=== PATIENT | female | born 1990 | race Caucasian/White ===

== ENCOUNTER 2020-07-24 18:43 | Emergency (ER) | payer OTHER, SELFPAY ==
[2020-07-24 18:54] VITALS: BP 144/95; PULSE 91; RESP 16; TEMP 36.9; O2SAT 100
--- NOTE | 2020-07-24 19:20 | ED.DENTAL ---
HPI - Dental/Oral General Chief complaint: Dental/Oral Stated complaint: hole under tongue Time Seen by Provider: 07/24/20 19:20 Source: patient and RN notes reviewed Mode of arrival: ambulatory Limitations: no limitations History of Present Illness HPI Narrative: 29 year old female presents to express care with complaints of hole under her left tongue region. Patient states tht she was at the dentist this evening when a dental tool slipped and she ended up with a hole under her tongue along left lingual frenulum about the size of a pencil eraser. Patient received oral antibiotic and also steroids on discharge from dentist but is concerned about food getting caught in area with infection. Patient states that she was told by dental activity assistant what had happened. Patient has no bleeding or drainage from area. Onset (ago): hour(s) (within past 1-2 hours ago) Duration: constant Severity: moderate Severity scale (1-10): 8 Relieving factors: nothing Exacerbating factors: chewing Context: trauma (mechanism) (dental tool slipped while getting root canal) Associated symptoms: tongue swelling and other (pain to underside left region of tongue) Treatment prior to arrival: none Related Data Home Medications Medication Instructions Recorded Confirmed escitalopram oxalate 20 mg PO DAILY 07/24/20 07/24/20 levonorgestrel-ethinyl estrad 1 tablet PO DAILY 07/24/20 07/24/20 [Vienva] rosuvastatin 20 mg PO DAILY 07/24/20 07/24/20 Allergies Allergy/AdvReac Type Severity Reaction Status Date / Time No Known Drug Allergies Allergy Unknown Other Verified 07/24/20 19:01 Review of Systems Review of Systems: Narrative: CONSTITUTIONAL: Denies fever, chills, or sweats. EYES: Denies visual changes, redness, or discharge. ENT: Denies rhinorrhea, congestion, sore throat, or otalgia, discomfort and hole to tissue under tongue on left side lingual frenulum area CARDIOVASCULAR: Denies chest pain, palpitations, or edema. RESPIRATORY: Denies cough or dyspnea. GASTROINTESTINAL: Denies abdominal pain, nausea, vomiting, or diarrhea. GENITOURINARY: Denies dysuria or hematuria. SKIN: Denies rash or itching. MUSCULOSKELETAL: Denies back pain, joint pain, or myalgia. NEUROLOGIC: Denies headache, numbness, or weakness. PSYCHIATRIC: history of anxiety or depression. All systems reviewed & are unremarkable except as noted in HPI and below PMFSH Past Medical History Medical History (Updated 07/24/20 @ 19:53 by Gwendolyn Hernandez NP) Anxiety and depression Elevated serum cholesterol Surgical History Surgical History (Updated 07/24/20 @ 19:53 by Gwendolyn Hernandez NP) History of tubal ligation Hx of cholecystectomy Family History Family History Other Asthma Hypertension Social History Social History Smoking status: Never smoker Alcohol intake: never Comments At time of signature, agree with nursing past medical, surgical, social and family history. There is no relevant family history pertinent to the presenting complaint Exam Narrative: Exam Narrative: GENERAL: Well-appearing, well-nourished, and in no acute distress. HEAD: Normocephalic, atraumatic. EYES: PERRLA and EOMI. ENT: Nares clear, no rhinorrhea or epistaxis. Mucous membranes moist.TM's normal with good light reflex,throat pink with no swelling, hole under tongue on lingual frenulum region size of pencil eraser. NECK: Supple.no lymphadenopathy CHEST: Clear to auscultation. No respiratory distress.SAO2 100% on room air. HEART: Regular rate and rhythm. No murmur heard. Normal peripheral pulses. ABDOMEN: Soft, nontender, nondistended, normal active bowel sounds. EXTREMITIES: Normal range of motion. No edema. SKIN: Warm, dry, no rash. NEURO: No focal deficits. Alert and oriented x3. Course Vital Signs Vital signs: Vital Signs Temperature 36.9 C 07/24/20 18:54 Pulse Rat
== END 2020-07-24 19:40 | disposition home or self-care (01) ==
PROVIDERS: Emergency Provider Registered Nurse; PCP Internal Medicine
DX: K14.9 Disease of tongue, unspecified (principal); S09.93XA Unspecified injury of face, initial encounter; X58.XXXA Exposure to other specified factors, initial encounter; F41.9 Anxiety disorder, unspecified; F32.9 Major depressive disorder, single episode, unspecified; E78.00 Pure hypercholesterolemia, unspecified
CPT/HCPCS: 99213; G0463

== ENCOUNTER 2021-05-06 15:39 | Emergency (ER) | payer OTHER, SELFPAY ==
[2021-05-06 15:46] VITALS: BP 136/84; PULSE 100; RESP 20; TEMP 36.6; O2SAT 99
--- NOTE | 2021-05-06 16:23 | ED.FALL ---
HPI - Fall General Chief Complaint: Fall Stated Complaint: fall Time Seen by Provider: 05/06/21 16:15 Source: patient and RN notes reviewed Mode of arrival: ambulatory Limitations: no limitations History of Present Illness HPI Narrative: Patient presents today after falling out of her shower 2 days ago and landing on her right side. Denies any head injury or loss of consciousness. She reports of body aches and headache. Denies numbness or tingling in the extremities. She currently rates her pain 8/10 and has been taking Tylenol without relief. She called her PCPs office, told them she had body aches related to a fall, and they told her she had Covid symptoms and needed a COVID-19 test. complaint: fall Related Data Home Medications Medication Instructions Recorded Confirmed escitalopram oxalate 20 mg PO DAILY 07/24/20 05/06/21 rosuvastatin 20 mg PO DAILY 07/24/20 05/06/21 levonorgestrel-ethinyl estrad 1 tablet PO DAILY 05/06/21 05/06/21 [Thaddeus (28)] Allergies Allergy/AdvReac Type Severity Reaction Status Date / Time No Known Drug Allergies Allergy Unknown Other Verified 05/06/21 16:09 Review of Systems Review of Systems: CONSTITUTIONAL: Denies fever, chills, or sweats.+ Body aches EYES: Denies visual changes, redness, or discharge. ENT: Denies rhinorrhea, congestion, sore throat, or otalgia. CARDIOVASCULAR: Denies chest pain, palpitations, or edema. RESPIRATORY: Denies cough or dyspnea. GASTROINTESTINAL: Denies abdominal pain, nausea, vomiting, or diarrhea. GENITOURINARY: Denies dysuria or hematuria. SKIN: Denies rash, itching, or wounds. MUSCULOSKELETAL: Denies back pain, joint pain, or myalgia. NEUROLOGIC: Denies headache, numbness, tingling, or weakness. PSYCH: Denies depression or anxiety. [facility] Past Medical History Medical History Anxiety and depression Elevated serum cholesterol Surgical History Surgical History History of tubal ligation Hx of cholecystectomy Family History Family History Other Asthma Hypertension Social History Social History Smoking status: Never smoker Alcohol intake: never Comments At time of signature, I have reviewed and agree with nursing past medical, surgical, social and family history unless otherwise noted. Please see nursing chart for further information. There is no relevant family history pertinent to the presenting complaint Exam Narrative: GENERAL: Well-appearing, well-nourished, and in no acute distress. HEAD: Normocephalic, atraumatic. EYES: EOMI. No redness or drainage. Conjunctivae normal. ENT: Mucous membranes pink and moist. NECK: Normal AROM. Supple. No lymphadenopathy. Neck is nontender. CHEST: No respiratory distress. Clear to auscultation. HEART: Regular rate and rhythm. No murmur appreciated. Normal peripheral pulses. ABDOMEN: Soft, nontender, nondistended, normal active bowel sounds. MUSCULOSKELETAL: No bony tenderness of the spine or paraspinal muscle tenderness. EXTREMITIES: Normal range of motion. No edema. SKIN: Warm, dry, no rash. Capillary refill normal. Normal skin turgor. NEURO: No focal deficits. Alert and oriented x3. Gait steady. PSYCH: Normal affect. No signs of depression or anxiety. Course Vital Signs Vital signs: Vital Signs Temperature 97.9 F 05/06/21 15:46 Pulse Rate 100 05/06/21 15:46 Respiratory Rate 20 05/06/21 15:46 Blood Pressure 136/84 05/06/21 15:46 Pulse Oximetry 99 05/06/21 15:46 Temperature 97.9 F 05/06/21 15:46 Pulse Rate 100 05/06/21 15:46 Respiratory Rate 20 05/06/21 15:46 Blood Pressure 136/84 05/06/21 15:46 Pulse Oximetry 99 05/06/21 15:46 Reviewed. Pt has been instructed to follow up with her PCP regardin
== END 2021-05-06 16:30 | disposition home or self-care (01) ==
PROVIDERS: Emergency Provider Nurse Practitioner; PCP Internal Medicine
DX: R52 Pain, unspecified (principal); W18.2XXA Fall in (into) shower or empty bathtub, initial encounter
CPT/HCPCS: 99213; G0463

== ENCOUNTER 2021-08-06 15:15 | Emergency (ER) | payer OTHER, SELFPAY ==
[2021-08-06 16:38] VITALS: BP 125/85; PULSE 86; RESP 20; TEMP 36.9; O2SAT 100
--- NOTE | 2021-08-06 18:18 | ED.EAR ---
HPI - Ear Problem General Chief complaint: Ear Stated complaint: Sinus Pain/Ear Pain Time Seen by Provider: 08/06/21 18:00 Source: patient, RN notes reviewed and old records reviewed Mode of arrival: ambulatory Limitations: no limitations History of Present Illness HPI Narrative: 30 year old female who presents to [facility] care with complaints of 2 day history of acute sinus pressure with drainage and left ear pain along with some sore throat. Patient reports that she has had low grade temperature denies any chills or sweats or any body aches. Patient states that she has not been COVID or flu vaccinated. Patient reports that she has been taking Sudafed and Ibuprofen for her symptoms. Patient reports aching pain to her left ear rates her pain as 6/10. Patient does have history of asthma but denies any acute cough, dyspnea or wheezing. MD Complaint: ear pain and other (sinus congestion, sore throat and acute sinus pressure) Location: left ear Related Data Home Medications Medication Instructions Recorded Confirmed escitalopram oxalate 20 mg PO DAILY 07/24/20 08/06/21 rosuvastatin 20 mg PO DAILY 07/24/20 08/06/21 levonorgestrel-ethinyl estrad 1 tablet PO DAILY 05/06/21 08/06/21 [Thaddeus (28)] Allergies Allergy/AdvReac Type Severity Reaction Status Date / Time No Known Drug Allergies Allergy Unknown Other Verified 05/06/21 16:09 Review of Systems Review of Systems: CONSTITUTIONAL: Low grade fever,no chills, or sweats. EYES: Denies visual changes, redness, or discharge. ENT: Positive for copious rhinorrhea, congestion, sore throat,left otalgia. CARDIOVASCULAR: Denies chest pain, palpitations, or edema. RESPIRATORY: Denies acute cough or dyspnea. GASTROINTESTINAL: Denies abdominal pain, nausea, vomiting, or diarrhea. GENITOURINARY: Denies dysuria or hematuria. SKIN: Denies rash or itching. MUSCULOSKELETAL: Denies back pain, joint pain, or myalgia. NEUROLOGIC: Denies headache, numbness, or weakness.sinus pressure to face PSYCHIATRIC: Positive for history of anxiety or depression. All systems reviewed & are unremarkable except as noted in HPI and below PMFSH Past Medical History Medical History (Updated 08/08/21 @ 12:13 by Gwendolyn Hernandez NP) Anxiety and depression Asthma Elevated serum cholesterol Surgical History Surgical History (Updated 08/08/21 @ 12:14 by Gwendolyn Hernandez NP) History of tubal ligation Hx of cholecystectomy Status post tendon repair right hand Family History Family History (Updated 08/08/21 @ 12:03 by Gwendolyn Hernandez NP) Grandparent Cerebrovascular accident Cancer Mother Hypertension Father Asthma Sibling Asthma Other Heart disease Social History Social History (Updated 08/08/21 @ 12:03 by Gwendolyn Hernandez NP) Smoking status: Never smoker Alcohol intake: never Substance use: never Living arrangements: with family Gender identity (if verbalized by the patient): Female Comments At time of signature, agree with nursing past medical, surgical, social and family history. There is no relevant family history pertinent to the presenting complaint Exam Narrative: GENERAL:Ill-appearing, well-nourished, and in no acute distress. HEAD: Normocephalic, atraumatic. EYES: PERRLA and EOMI. ENT: Nares red with swollen turbinates with clear to light yellow rhinorrhea or epistaxis. Mucous membranes moist.Left TM bulging with mild redness, right TM normal with dull light reflex, throat red with exudates no lesions no acute tonsil enlargement post nasal drainage present NECK: Supple. lymphadenopathy CHEST: Clear to auscultation. No respiratory distress.no acute cough noted, SAO2 100% on room air HEART: Regular rate and rhythm. No murmur heard. Normal peripheral pulses. ABDOMEN: Soft, nontender, nondistended, normal active bowel sounds. EXTREMITIES: Normal range of motion. No edema. SKIN: Warm, dry, no rash. NEURO: No focal deficits. Alert and oriented x3. Course Vi
== END 2021-08-06 18:34 | disposition home or self-care (01) ==
PROVIDERS: Emergency Provider Registered Nurse; PCP Internal Medicine
DX: J01.90 Acute sinusitis, unspecified (principal); J45.909 Unspecified asthma, uncomplicated; F41.9 Anxiety disorder, unspecified; F32.A Depression, unspecified
CPT/HCPCS: 99213; G0463

== ENCOUNTER 2022-09-02 17:19 | Emergency (ER) | payer OTHER, SELFPAY ==
[2022-09-02 17:26] VITALS: BP 131/82; PULSE 89; RESP 16; TEMP 36.6; O2SAT 99
--- NOTE | 2022-09-02 17:46 | ED.URI ---
HPI - URI/Sore Throat General Chief Complaint: Upper Respiratory Infection Stated Complaint: Ears/ congestion Time Seen by Provider: 09/02/22 17:49 Source: patient, RN notes reviewed and old records reviewed Mode of arrival: ambulatory Limitations: no limitations History of Present Illness HPI Narrative: 31-year-old female presents to the [facility] with complaints bilateral ear discomfort for couple of days, woke up this morning with a runny nose. Denies fevers. Has taken Benadryl but she states she can not sleep all the time Related Data Home Medications Medication Instructions Recorded Confirmed escitalopram oxalate 20 mg tablet 20 mg PO DAILY 07/24/20 08/06/21 rosuvastatin 20 mg tablet 20 mg PO DAILY 07/24/20 08/06/21 levonorgestrel 0.15 mg-ethinyl 1 tablet PO DAILY 05/06/21 08/06/21 estradiol 0.03 mg tablet (Thaddeus (28)) Allergies Allergy/AdvReac Type Severity Reaction Status Date / Time No Known Drug Allergies Allergy Unknown Other Verified 05/06/21 16:09 Review of Systems Review of Systems: All systems reviewed & are unremarkable except as noted in HPI and below Constitutional: Constitutional: Reports no additional constitutional complaints Eyes: Eyes: Reports no additional eye complaints ENT: Reports as per HPI Cardiovascular: Cardiovascular: Reports no additional cardiovascular complaints, Denies chest pain and Denies dyspnea Respiratory: Respiratory: Reports no additional respiratory complaints, Denies chest congestion, Denies cough and Denies dyspnea Gastrointestinal: Gastrointestinal: Reports no additional gastrointestinal complaints, Denies abdominal pain, Denies nausea and Denies vomiting Musculoskeletal: Musculoskeletal: Reports no additional musculoskeletal complaints Integumentary/Breasts: Skin/Breast: Reports system reviewed and no additional complaints, except as docu Neurologic: Reports system reviewed and no additional complaints, except as documented Psychiatric: Psychiatric: Reports no additional psychiatric complaints Allergic/Immunologic: Allergic/Immunologic: Reports no additional allergic/immunologic complaints [facility] Past Medical History Medical History (Updated 09/02/22 @ 17:58 by Stacia Mendoza APRN) Anxiety and depression Asthma Elevated serum cholesterol Surgical History Surgical History History of tubal ligation Hx of cholecystectomy Status post tendon repair right hand Family History Family History Grandparent Cerebrovascular accident Cancer Mother Hypertension Father Asthma Sibling Asthma Other Heart disease Social History Social History Smoking status: Never smoker Alcohol intake: never Substance use: never Living arrangements: with family Gender identity (if verbalized by the patient): Female Comments At the time of my signature, I reviewed and agree with the nursing past medical, surgical, social, and family history. There is no relevant family history pertinent to the patient complaint. Exam Const: General: cooperative, healthy appearing, comfortable, no acute distress, well developed, alert and well nourished Nutritional Appearance: well nourished Orientation/consciousness: patient oriented x3 Limitations: no limitations HENMT: Head: normal to inspection Ears: hearing grossly normal bilaterally, external ears normal and Abnormal EAC present cerumen impaction bilateral Face/Nose/Sinus: Normal external nose present, Normal nares present, Normal nasal mucous membranes and turbinates present, no nasal discharge noted and normal facial exam Face and sinus: normal facial exam Mouth: Yes Normal oral and palatal mucosa present, Yes lip normal and Yes moist mucous membranes Throat: posterior oropharynx normal and uvula midline Eyes: General: appearance normal
== END 2022-09-02 18:05 | disposition home or self-care (01) ==
PROVIDERS: Emergency Provider Nurse Practitioner
DX: H61.23 Impacted cerumen, bilateral (principal); F41.9 Anxiety disorder, unspecified; F32.A Depression, unspecified; J45.909 Unspecified asthma, uncomplicated; E78.00 Pure hypercholesterolemia, unspecified
CPT/HCPCS: 99213; G0463

== ENCOUNTER 2023-07-06 14:12 | Emergency (ER) | payer OTHER, SELFPAY ==
[2023-07-06 14:18] VITALS: BP 141/81; PULSE 102; RESP 20; TEMP 36.6; O2SAT 98
--- NOTE | 2023-07-06 14:35 | ED.URI ---
HPI - URI/Sore Throat General Chief Complaint: Upper Respiratory Infection Stated Complaint: Sore Throat/Headache Time Seen by Provider: 07/06/23 14:30 Source: patient and RN notes reviewed Mode of arrival: ambulatory Limitations: no limitations History of Present Illness HPI Narrative: 32-year-old female presents concern for cough for 1 month. Reports over the last 2-3 days she has began to have a sore throat. She reports mild stuffy nose and runny nose. Reports fatigue. MD elicited complaint: cough and sore throat Related Data Allergies Allergy/AdvReac Type Severity Reaction Status Date / Time No Known Drug Allergies Allergy Unknown Other Verified 01/22/23 13:40 Review of Systems Review of Systems: CONSTITUTIONAL: Reports malaise, fatigue. Denies chills, sweats, or fever. EYES: Denies visual changes, redness, or discharge. ENT: Reports rhinorrhea, congestion, sore throat. Denies sinus pain, otalgia CARDIOVASCULAR: Denies chest pain, palpitations, or edema. RESPIRATORY: Reports cough. Denies dyspnea. GASTROINTESTINAL: Denies abdominal pain, nausea, vomiting, diarrhea SKIN: Denies rash or itching. MUSCULOSKELETAL: Denies myalgia. NEUROLOGIC: Denies headache. All systems reviewed & are unremarkable except as noted in HPI and below PMFSH Past Medical History Medical History (Updated 07/06/23 @ 14:39 by Stacia Baez NP) Anxiety and depression Asthma Elevated serum cholesterol Screen for STD (sexually transmitted disease) Surgical History Surgical History History of tubal ligation Hx of cholecystectomy Status post tendon repair right hand Family History Family History Grandparent Cerebrovascular accident Cancer Mother Hypertension Father Asthma Sibling Asthma Other Heart disease Social History Social History (Updated 01/22/23 @ 13:42 by Shayla Klein CMA) Smoking status: Never smoker Alcohol intake: never Substance use: current Substance use type: marijuana Lack of Transportation: No Lack of Food: Never True Current Housing: I Have Housing Concerned About Future Housing: No Difficulty Paying Gas/Electric Bills: No Difficulty Paying for Meds: No Currently Unemployed: No Education: High School Diploma/GED Difficulty w/ Childcare or Family Care: No Living arrangements: with family Gender identity (if verbalized by the patient): Female Comments At time of signature, agree with nursing past medical, surgical, social and family history. There is no relevant family history pertinent to the presenting complaint Exam Narrative: GENERAL: Well-appearing, well-nourished, and in no acute distress. HEAD: Normocephalic EYES: PERRLA, conjunctivae clear ENT: Nares clear, turbinates edematous and erythematous, clear discharge. Mucous membranes moist. TM pearly adams with sharp light reflex bilaterally; no tragal tenderness. Oropharynx not erythematous without lesions. Tonsils not enlarged and without exudate, no drooling, no hoarseness, no trismus, uvula midline. NECK: Supple. No lymphadenopathy CHEST: Clear to auscultation, breath sounds equal. No wheezing, rhonchi, rales, or stridor. No respiratory distress, speaks in full sentences. HEART: Regular rate and rhythm. No murmur heard. SKIN: Warm, dry, no rash. NEURO: Alert and oriented x3. PSYCH: Normal mood and affect Course Course Emergency Course: Patient is aware of diagnosis, understands and agrees to treatment plan. Anticipatory guidance given. Patient agrees to follow-up as directed and is aware of reasons to seek care at the emergency department. Portions of this record may have been created with voice recognition software Level of Care: Express Care Visit Vital Signs Vital signs: Vital Signs Temperature 97.9 F 07/06/23 14:18 Pulse Rate 102 H 07/06/23 14:18 Respiratory Rate 20
== END 2023-07-06 14:45 | disposition home or self-care (01) ==
PROVIDERS: Emergency Provider Nurse Practitioner
DX: J06.9 Acute upper respiratory infection, unspecified (principal)
CPT/HCPCS: 87081; 87880; 99213; G0463

== ENCOUNTER 2023-07-10 11:01 | Outpatient (CLI) | payer OTHER, SELFPAY ==
[2023-07-10 13:58] LABS: Chlamydia trachomatis DETECTED (NOT DETECTE); Neisseria gonorrhoeae PCR NOT DETECTED (NOT DETECTE)
== END 2023-07-10 11:02 | disposition home or self-care (01) ==
PROVIDERS: Visit Provider Obstetrics & Gynecology
DX: Z11.3 Encounter for screening for infections with a predominantly sexual mode of transmission (principal)
CPT/HCPCS: 87491; 87591

== ENCOUNTER 2023-07-28 15:34 | Emergency (ER) | payer OTHER, SELFPAY ==
[2023-07-28 15:57] VITALS: BP 122/79; PULSE 80; RESP 16; TEMP 36.8; O2SAT 99
--- NOTE | 2023-07-28 17:03 | ED.GENADULT ---
HPI - General Adult General Chief complaint: [employer] Stated complaint: STD testing Source: patient Mode of arrival: ambulatory Limitations: no limitations History of Present Illness HPI narrative: Patient presents requesting STI testing. She indicates a male sex partner told her about 3-4 weeks ago that he tested positive for chlamydia, for which he was treated. After she found out, pt contacted her primary care provider who obtained a urine sample from her. She was not experiencing any symptoms at that time. Her chlamydia test was positive. She was treated with doxycycline for one week. She returned back to her primary care provider for evaluation of white/clear milky discharge. No diagnostic testing was performed at that time. She was given another round of doxycycline x 1 week. She return for a test for cure and was negative for chlamydia after her 2nd course of doxycycline. She had no sexual contact with her male partner while she was on antibiotics but did have receptive vaginal intercourse with following antibiotics. She now reports some pelvic cramping that started yesterday. She denies any vaginal discharge. No fever, chills, nausea, vomiting, urinary symptoms. She never uses condoms during sexual intercourse. She has a history of a tubal ligation. She has an upcoming appointment with her OBGYN in the middle of August. She has a history of regular menstruation, usually occurring between the 22nd and 25th for a month so please her current both cramping may be related to menstruation, although she is not bleeding Related Data Allergies Allergy/AdvReac Type Severity Reaction Status Date / Time No Known Drug Allergies Allergy Unknown Other Verified 01/22/23 13:40 Review of Systems Review of Systems: CONSTITUTIONAL: Denies fever, chills, or sweats. EYES: Denies visual changes, redness, or discharge. ENT: Denies rhinorrhea, congestion, sore throat, or otalgia. CARDIOVASCULAR: Denies chest pain, palpitations, or edema. RESPIRATORY: Denies cough or dyspnea. GASTROINTESTINAL: Denies abdominal pain, nausea, vomiting, or diarrhea. GENITOURINARY: Reports pelvic cramping. Denies dysuria or hematuria. SKIN: Denies rash or itching. MUSCULOSKELETAL: Denies back pain, joint pain, or myalgia. NEUROLOGIC: Denies headache, numbness, dizziness, or weakness. PSYCHIATRIC: Denies anxiety or depression. [facility] Past Medical History Medical History Anxiety and depression Asthma Elevated serum cholesterol Screen for STD (sexually transmitted disease) Surgical History Surgical History History of tubal ligation Hx of cholecystectomy Status post tendon repair right hand Family History Family History Grandparent Cerebrovascular accident Cancer Mother Hypertension Father Asthma Sibling Asthma Other Heart disease Social History Social History Smoking status: Never smoker Alcohol intake: never Substance use: current Substance use type: marijuana Lack of Transportation: No Lack of Food: Never True Current Housing: I Have Housing Concerned About Future Housing: No Difficulty Paying Gas/Electric Bills: No Difficulty Paying for Meds: No Currently Unemployed: No Education: High School Diploma/GED Difficulty w/ Childcare or Family Care: No Living arrangements: with family Gender identity (if verbalized by the patient): Female Exam Narrative: GENERAL: Well-appearing, well-nourished, and in no acute distress. HEAD: Normocephalic, atraumatic. EYES: PERRLA and EOMI. ENT: Nares clear, no rhinorrhea or epistaxis. Mucous membranes moist. Oropharynx without tonsillar hypertrophy exudate or other lesions. Bilateral TMs pearly adams nonbulging NECK: Supple. N
[2023-07-28 21:08] LABS: Trichomonas Vag PCR NOT DETECTED (NOT DETECTE)
[2023-07-28 21:29] LABS: Chlamydia trachomatis NOT DETECTED (NOT DETECTE); Neisseria gonorrhoeae PCR NOT DETECTED (NOT DETECTE)
== END 2023-07-28 17:25 | disposition home or self-care (01) ==
PROVIDERS: Emergency Provider Nurse Practitioner
DX: N30.00 Acute cystitis without hematuria (principal); Z11.3 Encounter for screening for infections with a predominantly sexual mode of transmission
CPT/HCPCS: 81003; 87077; 87086; 87088; 87491; 87591; 87661; 99214; G0463

== ENCOUNTER 2023-08-26 08:31 | Emergency (ER) | payer OTHER, SELFPAY ==
[2023-08-26 08:38] VITALS: BP 112/87; PULSE 120; RESP 19; TEMP 36.9; O2SAT 100
[2023-08-26 08:53] VITALS: BP 134/91; PULSE 101; RESP 16; O2SAT 99
--- NOTE | 2023-08-26 09:09 | ED.SKABFB ---
HPI - Skin/Abscess/Foreign Bdy General Chief complaint: Skin/Abscess/Foreign Body Stated complaint: knot on abdomen Time Seen by Provider: 08/26/23 08:57 Source: patient Mode of arrival: ambulatory Limitations: no limitations History of Present Illness HPI narrative: Arik is a 32-year-old female patient presenting to the ER today for a abscess to the left lower abdomen. She reports she was seen at [facility] in [place], [place] on Thursday and was started on Bactrim. She reports that the pain and redness is getting worse. The area has now come up to a head as well. Rates pain 9/10 currently. Has had body aches and chills but no known fever. Related Data Allergies Allergy/AdvReac Type Severity Reaction Status Date / Time No Known Drug Allergies Allergy Unknown Other Verified 08/26/23 08:41 Review of Systems Review of Systems: Pertinent positives per HPI. Patient denies any fever, chills, rash, headache, visual changes, dizziness, cough, runny nose, sore throat, shortness of breath, chest pain, palpitations, nausea, vomiting, diarrhea, constipation, abdominal pain, or any urinary issues. [facility] Past Medical History Medical History Anxiety and depression Asthma Elevated serum cholesterol Screen for STD (sexually transmitted disease) Surgical History Surgical History History of tubal ligation Hx of cholecystectomy Status post tendon repair right hand Family History Family History Grandparent Cerebrovascular accident Cancer Mother Hypertension Father Asthma Sibling Asthma Other Heart disease Social History Social History Smoking status: Never smoker Alcohol intake: never Substance use: current Substance use type: marijuana Lack of Transportation: No Lack of Food: Never True Current Housing: I Have Housing Concerned About Future Housing: No Difficulty Paying Gas/Electric Bills: No Difficulty Paying for Meds: No Currently Unemployed: No Education: High School Diploma/GED Difficulty w/ Childcare or Family Care: No Living arrangements: with family Gender identity (if verbalized by the patient): Female Comments At the time of my signature, I reviewed and agree with the nursing past medical, surgical, social, and family history. There is no relevant family history pertinent to the patient complaint. Exam Narrative: General: Well-developed, well nourished, in no apparent distress Head: Normocephalic, atraumatic. Cardio: Regular rate and rhythm, s1 and s2 normal, no murmur appreciated. Resp: Clear to auscultation bilaterally, no rhonchi, rales, wheezing or rubs. Integumentary: [place], warm, and dry, 2 1/2 x 4 cm abscess with induration to the left lower abdomen wall, mild fluctuance noted. Course Course Emergency Course: Portions of this record may have been created with voice recognition software. Vital Signs Vital signs: Vital Signs Temperature 36.9 C 08/26/23 08:38 Pulse Rate 120 H 08/26/23 08:38 Respiratory Rate 19 08/26/23 08:38 Blood Pressure 112/87 08/26/23 08:38 Pulse Oximetry 100 08/26/23 08:38 Oxygen Delivery Room Air 08/26/23 08:38 Temperature 36.9 C 08/26/23 08:38 Pulse Rate 75 08/26/23 10:23 Respiratory Rate 17 08/26/23 10:23 Blood Pressure 138/88 08/26/23 10:23 Pulse Oximetry 99 08/26/23 10:23 Oxygen Delivery Room Air 08/26/23 08:38 Vital signs reviewed Procedures Abscess I/D abdomen: Date of Incision: 08/26/23 Side (if applicable): left (lower) Local Anesthetic: lidocaine 1% and with epi Amount of anesthesia used (mL): 2 Technique: incised with #11 blade Amount of fluid expressed (mL): 5 Irrigation: No
[2023-08-26 09:32] LABS: Basophils Absolute Auto 0.1 K/mm3 (0.0-0.1); Basophils Percent Auto 0.6 % (0.2-1.2); Eosinophils Absolute Auto 0.2 K/mm3 (0-0.3); Hematocrit 42.4 % (37.0-47.0); Hemoglobin 14.2 g/dL (12.0-15.0); Immature Granulocyte Absolute 0.03 K/mm3 (0.00-0.031); Immature Granulocyte Percent A 0.3 % (0-0.5); Lymphocytes Percent Auto 17.6 % (18.3-44.2); Mean Corpuscular HGB Conc 33.5 g/dl (32-36); Mean Corpuscular Volume 86.7 fl (80-100); Monocytes Absolute Auto 0.6 K/mm3 (0.1-0.6); Monocytes Percent Auto 5.7 % (2.6-8.5); Neutrophils Absolute Auto 7.6 K/mm3 (1.3-6.7); Neutrophils Percent Auto 73.8 % (45.5-73.1); Platelet Count Result 230 k/mm3 (150-375); Red Blood Count 4.89 M/mm3 (4.2-5.4); Red Cell Distribution Width 11.9 % (11.5-14.5); White Blood Count 10.2 K/mm3 (4.5-10.0)
[2023-08-26 09:37] VITALS: BP 130/91; PULSE 101; RESP 23; O2SAT 100
[2023-08-26 09:41] LABS: Alanine Aminotransferase 29 U/L (6-35); Albumin Level 4.4 g/dL (3.5-5.1); Alkaline Phosphatase 45 U/L (38-126); Anion Gap 11 mmol/L (8-16); Aspartate Amino Transferase 27 U/L (14-36); Bilirubin,Total 0.6 mg/dL (0.2-1.3); Blood Urea Nitrogen 4 mg/dL (7-17); Calcium 8.9 mg/dL (8.4-10.2); Carbon Dioxide 23 mmol/L (22-30); Chloride 101 mmol/L (98-107); Estimated CRCL calculation 99 ml/min; Estimated Glomerular Filt Rate > 60; Glucose 155 mg/dL (65-110); Lactic Acid Reflex 1.6 mmol/L (0.7-2.0); Potassium 3.5 mmol/L (3.4-5.0); Sodium 135 mmol/L (137-145)
[2023-08-26 10:23] VITALS: BP 138/88; PULSE 75; RESP 17; O2SAT 99
[2023-08-26] MEDS: CLINDAMYCIN 600 MG/D5W 50 ML 600 MG/50 ML PIGGYBACK 100 MG IVPB (10:23)
== END 2023-08-26 10:30 | disposition home or self-care (01) ==
PROVIDERS: Emergency Provider Nurse Practitioner Family
DX: L02.211 Cutaneous abscess of abdominal wall (principal); F41.9 Anxiety disorder, unspecified; J45.909 Unspecified asthma, uncomplicated
CPT/HCPCS: 10061; 36415; 80053; 81025; 83605; 85025; 87040; 87070; 87147; 87181; 87186; 87205; 96365; 99284

== ENCOUNTER 2023-08-27 14:47 | Emergency (ER) | payer OTHER, SELFPAY ==
[2023-08-27 14:56] VITALS: BP 117/79; PULSE 103; RESP 16; TEMP 36.6; O2SAT 100
[2023-08-27] MEDS: KETOROLAC 30 MG/ML VIAL (*BKC) IM (17:49)
[2023-08-27] MEDS: HYDROcodone/acetaminophen (*CRX) 5-325 MG TABLET 1 TAB PO (17:49)
--- NOTE | 2023-08-27 18:45 | ED.GENADULT ---
HPI - General Adult General Chief complaint: Skin/Abscess/Foreign Body Stated complaint: abscess Time Seen by Provider: 08/27/23 16:03 History of Present Illness HPI narrative: Lukas Stevens is a 32 y/o female who presents [facility] reports of being here yesterday for an abscess to her right left lower abdomen, it was incised / drained / packing placed and started on clindamycin. She returns today because she feels added pressure in the abscess and her doctor told to get it rechecked. Related Data Allergies Allergy/AdvReac Type Severity Reaction Status Date / Time No Known Drug Allergies Allergy Unknown Other Verified 08/27/23 15:33 Review of Systems Review of Systems: CONSTITUTIONAL: Denies fever, chills, or sweats. EYES: Denies visual changes, redness, or discharge. ENT: Denies rhinorrhea, congestion, sore throat, or otalgia. CARDIOVASCULAR: Denies chest pain, palpitations, or edema. RESPIRATORY: Denies cough or dyspnea. GASTROINTESTINAL: Denies abdominal pain, nausea, vomiting, or diarrhea. GENITOURINARY: Denies dysuria or hematuria. SKIN: Denies rash or itching. reports of abscess to the left lower abdomen that feels more pressure/pain today MUSCULOSKELETAL: Denies back pain, joint pain, or myalgia. NEUROLOGIC: Denies headache, numbness, dizziness, or weakness. PSYCHIATRIC: Denies anxiety or depression. [facility] Past Medical History Medical History Anxiety and depression Asthma Elevated serum cholesterol Screen for STD (sexually transmitted disease) Surgical History Surgical History History of tubal ligation Hx of cholecystectomy Status post tendon repair right hand Family History Family History Grandparent Cerebrovascular accident Cancer Mother Hypertension Father Asthma Sibling Asthma Other Heart disease Social History Social History Smoking status: Never smoker Alcohol intake: never Substance use: current Substance use type: marijuana Lack of Transportation: No Lack of Food: Never True Current Housing: I Have Housing Concerned About Future Housing: No Difficulty Paying Gas/Electric Bills: No Difficulty Paying for Meds: No Currently Unemployed: No Education: High School Diploma/GED Difficulty w/ Childcare or Family Care: No Living arrangements: with family Gender identity (if verbalized by the patient): Female Exam Narrative: GENERAL: Well-appearing, well-nourished, and in no acute distress. HEAD: Normocephalic, atraumatic. EYES: PERRLA and EOMI. ENT: Nares clear, no rhinorrhea or epistaxis. Mucous membranes moist. Oropharynx without tonsillar hypertrophy exudate or other lesions. NECK: Supple. No adenopathy or masses. No carotid bruits or JVD CHEST: Clear to auscultation. No respiratory distress. No wheezes rales or rhonchi HEART: Regular rate and rhythm. No murmur heard. Normal peripheral pulses. ABDOMEN: Soft, nontender, nondistended, normal active bowel sounds. EXTREMITIES: Normal range of motion. No edema. SKIN: Warm, dry, no rash. abscess noted to the left lower abdomen area with packing hanging out. slight surrounding erythema/ cellulitis to the area as well. NEURO: No focal deficits. Alert and oriented x3. PSYCH: Normal mood and affect. Course Vital Signs Vital signs: Vital Signs Temperature 36.6 C 08/27/23 14:56 Pulse Rate 103 H 08/27/23 14:56 Respiratory Rate 16 08/27/23 14:56 Blood Pressure 117/79 08/27/23 14:56 Pulse Oximetry 100 08/27/23 14:56 Oxygen Delivery Room Air 08/27/23 14:56 Temperature 36.6 C 08/27/23 14:56 Pulse Rate 103 H 08/27/23 14:56 Respiratory Rate 16 08/27/23 14:56 Blood Pressure 117/79 08/27/23 14:56 Pulse Oximetry 100 08/27/23 14:56 Oxygen Delivery Room Air 0
== END 2023-08-27 19:34 | disposition home or self-care (01) ==
PROVIDERS: Emergency Provider Nurse Practitioner Family; PCP Internal Medicine
DX: L02.211 Cutaneous abscess of abdominal wall (principal); J45.909 Unspecified asthma, uncomplicated; Z90.49 Acquired absence of other specified parts of digestive tract
CPT/HCPCS: 10060; 96372; 99283; A9270; J1885

== ENCOUNTER 2023-12-11 08:31 | Outpatient (CLI) | payer OTHER, SELFPAY ==
[2023-12-11 09:25] LABS: Basophils Absolute Auto 0.1 K/mm3 (0.0-0.1); Basophils Percent Auto 1.2 % (0.2-1.2); Eosinophils Absolute Auto 0.1 K/mm3 (0-0.3); Eosinophils Percent Auto 2.1 % (0-4.4); Hematocrit 40.4 % (37.0-47.0); Hemoglobin 13.7 g/dL (12.0-15.0); Immature Granulocyte Absolute 0.01 K/mm3 (0.00-0.031); Immature Granulocyte Percent A 0.2 % (0-0.5); Lymphocytes Absolute Auto 2.56 K/mm3 (0.9-3.2); Lymphocytes Percent Auto 38.5 % (18.3-44.2); Mean Corpuscular HGB Conc 33.9 g/dl (32-36); Mean Corpuscular Hemoglobin 29.3 pg (26-34); Mean Corpuscular Volume 86.3 fl (80-100); Mean Platelet Volume 9.8 fl (7.4-10.4); Monocytes Absolute Auto 0.4 K/mm3 (0.1-0.6); Monocytes Percent Auto 6.3 % (2.6-8.5); Neutrophils Absolute Auto 3.4 K/mm3 (1.3-6.7); Neutrophils Percent Auto 51.7 % (45.5-73.1); Platelet Count Result 233 k/mm3 (150-375); Red Blood Count 4.68 M/mm3 (4.2-5.4); Red Cell Distribution Width 12.5 % (11.5-14.5); White Blood Count 6.7 K/mm3 (4.5-10.0)
[2023-12-11 09:38] LABS: Alanine Aminotransferase 16 U/L (6-35); Albumin Level 4.4 g/dL (3.5-5.1); Alkaline Phosphatase 32 U/L (38-126); Anion Gap 6 mmol/L (4-12); Aspartate Amino Transferase 19 U/L (14-36); Blood Urea Nitrogen 8 mg/dL (7-17); Calcium 9.1 mg/dL (8.4-10.2); Carbon Dioxide 26 mmol/L (22-30); Chloride 107 mmol/L (98-107); Cholesterol 170 mg/dL (0-200); Estimated Glomerular Filt Rate > 60; Glucose 97 mg/dL (65-110); HDL Direct 52 mg/dL; Potassium 4.1 mmol/L (3.4-5.0); Sodium 139 mmol/L (137-145); Triglycerides 80 mg/dL (<150)
[2023-12-11 09:46] LABS: Hemoglobin A1C 5.1 % (<5.7)
[2023-12-11 09:49] LABS: LDL Cholesterol Direct 91 mg/dL
[2023-12-11 10:08] LABS: Free T4 Free Thyroxine 1.26 ng/mL (0.78-2.19); Vitamin D 25 Hydroxy 37.8 ng/mL
[2023-12-11 10:17] LABS: HIV 1/2 Ab P24 Ag Result Negative (Negative)
[2023-12-11 11:12] LABS: Chlamydia trachomatis NOT DETECTED (NOT DETECTE); Neisseria gonorrhoeae PCR NOT DETECTED (NOT DETECTE)
[2023-12-11 12:51] LABS: Rapid Plasma Reagin Non-Reactive (NonReactive)
== END 2023-12-11 08:32 | disposition home or self-care (01) ==
LOC: ANHLAB 08:36
PROVIDERS: PCP Internal Medicine; Visit Provider Internal Medicine
DX: L08.9 Local infection of the skin and subcutaneous tissue, unspecified (principal); E78.5 Hyperlipidemia, unspecified; E55.9 Vitamin D deficiency, unspecified
CPT/HCPCS: 36415; 80053; 80061; 82248; 82306; 83036; 84439; 84443; 85025; 86592; 86695; 86696; 86703; 87491; 87591; G0432

== ENCOUNTER 2024-09-02 10:21 | Emergency (ER) | payer OTHER, SELFPAY ==
[2024-09-02 10:27] VITALS: BP 129/73; PULSE 126; RESP 18; TEMP 37; O2SAT 100
--- NOTE | 2024-09-02 10:48 | ED.URI ---
HPI - URI/Sore Throat General Chief Complaint: Upper Respiratory Infection Stated Complaint: Fever/Vomiting /Diarrhea/Cough Time Seen by Provider: 09/02/24 10:48 Source: patient, RN notes reviewed and old records reviewed Mode of arrival: ambulatory Limitations: no limitations History of Present Illness HPI Narrative: 33 year old female presents to express care with complaints of fever, nausea and vomiting, diarrhea, body aches, and coughing up phlegm. Patient reports that she had 101F fever last evening and has been taking Tylenol and Ibuprofen for her symptoms. She states that her children are ill with Influenza with one starting on Thursday the other on Thursday and her symptoms starting on Thursday. Patient reports that she needs work note and verified test of influenza. MD elicited complaint: fever, cough and other (nausea,vomiting and diarrhea, body aches and coughing up phlegm) Onset (ago): day(s) (Thursday ) Consistency: constant Severity: moderate Description of mucous: clear Treatments prior to arrival: acetaminophen and ibuprofen Related Data Allergies Allergy/AdvReac Type Severity Reaction Status Date / Time No Known Drug Allergies Allergy Unknown Other Verified 09/02/24 10:35 Review of Systems Review of Systems: CONSTITUTIONAL: Reports malaise, chills, sweats, or fever. EYES: Denies visual changes, redness, or discharge. ENT: Reports rhinorrhea, congestion, sinus pain,no otalgia and no sore throat. CARDIOVASCULAR: Denies chest pain, palpitations, or edema. RESPIRATORY: Reports productive cough ? Denies dyspnea. GASTROINTESTINAL: Denies abdominal pain, positive for nausea, vomiting, diarrhea SKIN: Denies rash or itching. MUSCULOSKELETAL: Reports myalgia. NEUROLOGIC: reports headache. All systems reviewed & are unremarkable except as noted in HPI and below PMFSH Past Medical History Medical History Screen for STD (sexually transmitted disease) Asthma Elevated serum cholesterol Anxiety and depression Surgical History Surgical History Status post tendon repair right hand History of tubal ligation Hx of cholecystectomy Family History Family History Grandparent Cerebrovascular accident Cancer Mother Hypertension Father Asthma Sibling Asthma Other Heart disease Social History Social History Smoking status: Never smoker Alcohol intake: never Substance use: current Substance use type: marijuana Lack of Transportation: No Lack of Food: Never True Current Housing: I Have Housing Concerned About Future Housing: No Difficulty Paying Gas/Electric Bills: No Difficulty Paying for Meds: No Currently Unemployed: No Education: High School Diploma/GED Difficulty w/ Childcare or Family Care: No Living arrangements: with family Gender identity (if verbalized by the patient): Female Comments At time of signature, agree with nursing past medical, surgical, social and family history. There is no relevant family history pertinent to the presenting complaint Exam Narrative: GENERAL: Ill-appearing, well-nourished, and in no acute distress, body aches and general malaise HEAD: Normocephalic EYES: PERRLA, conjunctivae clear ENT: Nares clear, turbinates edematous and erythematous, clear discharge. Mucous membranes moist. TM pearly adams with dull light reflex bilaterally; no tragal tenderness. Oropharynx erythematous without lesions. Tonsils not enlarged and without exudate, no drooling, no hoarseness, no trismus, uvula midline, post nasal drainage noted. NECK: Supple. No lymphadenopathy CHEST: Clear to auscultation, breath sounds equal. No wheezing, rhonchi, rales, or stridor. No respiratory distress, speaks in full sentences.productive cough, SAO2 100% on room air no tachypnea HEART: Regular rate and rhythm. No murmur heard. SKIN: Warm, dry, no rash. NEURO: Alert and oriented x3. PSYCH: Normal mood and affect Course Course Emergency Course: Patient is aware of diagnosis, understands and agrees to treatment plan.? Anticipatory guidance given.? Patient agrees to follow-up as directed and is aware of reasons to seek care at the emergency department. Portions of this record may have been created with voice recognition software Level of Care: Express Care Visit Vital Signs Vital signs: Vital Signs Temperature 37.0 C 09/02/24 10:27 Pulse Rate 126 H 09/02/24 10:27 Respiratory Rate 18 09/02/24 10:27 Blood Pressure 129/73 09/02/24 10:27 Pulse Oximetry 100 09/02/24 10:27 Oxygen Delivery Room Air 09/02/24 10:27 Temperature 37.0 C 09/02/24 10:27 Pulse Rate 126 H 09/02/24 10:27 Respiratory Rate 18 09/02/24 10:27 Blood Pressure 129/73 09/02/24 10:27 Pulse Oximetry 100 09/02/24 10:27 Oxygen Delivery Room Air 09/02/24 10:27 Reviewed MDM - URI/Sore Throat MDM Narrative Medical decision making narrative: Differential diagnosis considered: Pollard virus, strep pharyngitis, allergic rhinitis, upper respiratory tract infection, sinusitis, rhinosinusitis, nasopharyngitis. viral pharyngitis, otitis media, otitis externa, pneumonia, bronchitis, viral cough syndrome, viral syndrome, and influenza.? Exam findings show no acute concerns or changes; patient is non-toxic appearing and is in no distress.? Patient is appropriate for outpatient treatment and follow-up. Differential Diagnosis Differential diagnosis: Likely upper respiratory infection, sinusitis, viral infection, influenza and other (COVID) Medical Records Attestation: I reviewed the patient's medical records. Lab Data Attestation: I reviewed the patient's lab results. Lab results narrative: influenza A positive, Influenza B negative, COVID antigen negative Critical Care Time Critical Care Time Critical Care Time: No Discharge Plan Discharge Clinical Impression: Influenza A Patient Disposition: Home, Self-Care Condition: Stable Instructions: Antibiotic Form, Influenza (ED) Additional Instructions: Increase fluids especially juices and water, maintain light diet [id number] cough and cold medicine of your choice for your symptoms Zyrtec Claritin or Eloise daily Tylenol or ibuprofen for any fever pain Zofran for nausea and vomiting May use Imodium if diarrhea heat to the face 20-30 minutes 4-6 times a day for pain Salt water gargles, throat lozenges or throat sprays as desired If your symptoms persist, change or worsen significantly before you can contact your personal physician then please, without delay, go to the emergency department for further evaluation. Follow-up with PCP in 7-10 days or sooner if needed Follow up with PCP soon in regards to your blood pressure which is elevated above threshold for referral. Blood pressure above 120/80 may indicate pre-hypertension. 129/73 You must be fever free without use of Tylenol or ibuprofen for 24 hours before you can return to work Patient Language: Barb[place] Prescriptions: New ondansetron 4 mg tablet,disintegrating 4 mg PO Q6H Qty: 20 0RF No Action clindamycin HCl 300 mg capsule 300 mg PO Q6H 10 Days Qty: 40 0RF Follow-up/Referrals: Martin,MD Letitia [Primary Care Provider] - Stand Alone Forms: Work/School Release IP Time of Disposition: 11:12 Quality [place] Coma Scale Eyes: Open Verbal: Oriented and Alert Motor: Follows Commands [place]una Coma Total Score: 15
--- OUTSIDE RECORDS SUMMARY | 2024-09-02 10:59 | XMS_ITS | Data Portability ---
Author Organization ID - S [employer], Main Office Address [address] [place] [address] Assessment Encounter Date Assessment Date Assessment LastModified by Organization Details LastModified Time 11/10/2023 11/10/2023 08/26/2023: Wilfred ER WBC 10.2 Gluc 155 [email or web address] Not available 11/10/2023 14:45:21 11/12/2023 11/12/2023 Pubic catheter. Drained in the office today of the local anesthesia. Procedure dictated. Follow-up here p.r.n. [email or web address] Not available 11/12/2023 13:36:00 Plan of Treatment Reminders Order Date Submit Date Provider Last Modified By Organization Details Last Modified Time Details Appointments None recorded. Lab vitamin D, 25-hydroxy, total, serum 2022 023 LILY Not available 3 16:06:35 CBC w/ auto diff 2022 023 LILY Not available 3 16:06:36 CMP, serum or plasma 2022 023 LILY Not available 3 10:25:58 lipid panel, serum 2022 023 LILY Not available 3 10:25:58 TSH + free T4, serum 2022 023 LILY Not available 3 10:25:59 vitamin B12 + folate, serum or blood 2022 023 Not available 3 17:16:39 glycohemogl obin, total, blood 2023 024 [email or web address] Not available 4 11:06:25 vitamin D, 25-hydroxy, total, serum 2023 024 [email or web address] Not available 4 10:02:40 lipid panel, serum 2023 024 [email or web address] Not available 4 09:06:30 CMP, serum or plasma 2023 024 [email or web address] Not available 4 09:06:30 CBC w/ auto diff 2023 024 [email or web address] Not available 4 10:02:41 TSH + free T4, serum 2023 024 [email or web address] Not available 4 09:06:30 vitamin B12 + folate, serum or blood 2023 024 [email or web address] Not available 4 10:02:41 Referral obstetricia n and gynecologis t referral 2022 023 James Hodgson MD, [address] [facility] [address], [place], [address], 3 15:01:33 general surgeon referral 2023 024 [email or web address] Bradly Umana MD, [address], [address], [place], [address], 4 08:22:12 Procedures None recorded. Surgeries None recorded. Imaging None recorded. Medication Orders escitalopra m 20 mg tablet 2022 023 eva vallejo [facility][id number], [address] , [place], [place], [id number], 4 14:51:24 fluticasone propionate 50 mcg/actuati on nasal spray,suspe nsion 2022 023 [facility] #[id number], [address], [place], [place], [id number], 3 14:50:30 cetirizine 10 mg tablet 2022 023 [facility] #[id number], [address], [place], [place], [id number], 3 14:50:41 cephalexin 250 mg capsule 2023 024 [facility] #[id number], [address], [place], [place], [id number], 4 15:07:06 tramadol 50 mg tablet 2023 024 [facility] #[id number], [address], [place], [place], [id number], 4 14:53:50 Patient TargetsNo targets recorded. Patient InstructionsNo instructions recorded. Reason for Referral Laboratory Clerk And Gynecologis t Referral for Gynecologic examination Referring Physician: Letitia Salazar, Internal Medicine, Encounter Date: 10/22/2022 General Surgeon Referral for Folliculitis Referring Physician: Letitia Salazar Internal Medicine, Encounter Date: 11/10/2023 Results Created Date Observation Date Name Description Value Unit Range Abnormal Flag Note LastModifiedBy Organization Detail LastModifiedTime 07/16/20 23 07/16/2023 HEPAT ITIS ACUTE PANEL hepatitis A IgM antibody NON-RE ACTIVE non-re active For sampl es repor chapin as Borde rline React tarah for HAV IgM, it is recom earnest d a new speci men be obtai carmenza in 2 weeks and retes chapin. Not Available [facility] (Lab) [address] [place], [address], 07/16/2023 20:05:21 07/16/20 23 07/16/2023 HEPAT ITIS ACUTE PANEL hepatitis A virus signal/cutof 0.01 0.00-0 .79 Not Available [facility] (Lab) [address] [place], [address], 07/16/2023 20:05:21 07/16/20 23 07/16/2023 HEPAT ITIS ACUTE PANEL hepatitis B core IgM antibody NON-RE ACTIVE non-re active Not Available [facility] (Lab) [address] [place], [address], 07/16/2023 20:05:21 07/16/20 23 07/16/2023 HEPAT ITIS ACUTE PANEL HBV core IgM signal/cutof f 0.03 0.00-1 .10 Not Available [facility] (Lab) [address] [place], [address], 07/16/2023 20:05:21 07/16/20 23 07/16/2023 HEPAT ITIS ACUTE PANEL hepatitis B surface antigen NON-RE ACTIVE non-re active All speci mens react tarah for Hepat itis B Surfa ce Antig en will refle x to refer ral lab confi rmato ry testi ng. Not Available [facility] (Lab) [address] [place], [address], 07/16/2023 20:05:21 07/16/20 23 07/16/2023 HEPAT ITIS ACUTE PANEL HBV surf.antigen signal/cutof f 0.07 0.00-0 .99 Not Available [facility] (Lab) [address] [place] [address], [address], 07/16/2023 20:05:21 07/16/20 23 07/16/2023 HEPAT ITIS ACUTE PANEL hepatitis C antibody NON-RE ACTIVE non-re active All speci mens react tarah for Hepat itis C Virus antib dionisio will refle x to PCR confi rmato ry testi ng. Pleas e allow 48-72 hours for resul ts. Not Available [facility] (Lab) [address] [place] [address], [address], 07/16/2023 20:05:21 07/16/20 23 07/16/2023 HEPAT ITIS ACUTE PANEL hepatitis C virus signal/cutof 0.01 0.00-0 .99 Not Available [facility] (Lab) [address] [place], [address], 07/16/2023 20:05:21 07/16/20 23 07/16/2023 HIV COMBO : HIV 1/2 AB,P2 4 AG HIV combo assay NON-RE ACTIVE nonrea ctive The HIV combo test scree ns for HIV-1 , HIV-2 , HIV p24 Ag, and HIV group O. Any react tarah scree n resul t will be sent for PCR confi rmato ry testi ng. Not Available [facility] (Lab) [address] [place], [address], 07/16/2023 20:05:05 07/16/20 23 07/16/2023 HIV COMBO : HIV 1/2 AB,P2 4 AG signal/cutof f 0.17 0.00-0 .99 Not Available [facility] (Lab) [address] [place], [address], 07/16/2023 20:05:05 07/16/20 23 07/16/2023 CT/NG (CHLA MYDIA /NEIS SERIA ) DNA chlamydia trachomatis DNA NOT DETECT ED Not Available [facility] (Lab) [address] [place], [address], 07/16/2023 20:23:46 07/16/20 23 07/16/2023 CT/NG (CHLA MYDIA /NEIS SERIA ) DNA neisseria gonorrhea DNA NOT DETECT ED Not Available [facility] (Lab) [address] [place], [address], 07/16/2023 20:23:46 07/16/20 23 07/17/2023 HERPE S/HSV 1 hsv type 1 IgG 47.20 index 0.00-0 .90 high Negat tarah <0.91 Equiv ocal 0.91 - 1.09 Posit tarah >1.09 Note: Negat tarah indic ates no antib odies detec chapin to HSV-1 . Equiv ocal may sugge st early infec tion. If clini norma appro priat e, retes t at later date. Posit tarah indic ates antib odies detec chapin to HSV-1 . Not Available [facility] (Lab) [address] [place], [address], 07/17/2023 07:12:16 07/16/20 23 07/17/2023 HERPE S/HSV 1 hsv type 2 IgG <0.91 index 0.00-0 .90 Negat tarah <0.91 Equiv ocal 0.91 - 1.09 Posit tarah >1.09 HSV-2 Antib dionisio Inter preta tion: Skylar nt guide lines and recom menda tions do not recom mend routi ne scree sue for HSV-2 in asymp tomat ic indiv idual s, inclu ding those that are pregn ant. A negat tarah antib dionisio resul t indic ates no detec table antib odies to HSV-2 were found . If recen t expos ure is suspe cted, retes t in 4 to 6 weeks . Equiv ocal sampl es shoul d be retes chapin in 4 to 6 weeks . A posit tarah resul t indic ates the prese nce of detec table IgG antib dionisio to HSV-2 . FALSE POSIT TARAH RESUL TS MAY OCCUR . Repea t testi ng, or testi ng by a diffe rent metho d, may be indic ated in some setti ngs (e.g. patie nts with low likel ihood of HSV infec tion) . If clini norma appro priat e, retes t 4 to 6 weeks later . HSV-2 IgG antib dionisio testi ng resul ts shoul d be clini norma corre lated . Perfo rmed at: - [facility] [address] [facility], [place] [id number] [facility] Direc tor: Cuco mathews PhD, Phone : [phone] Not Available [facility] (Lab) [address] [place], [address], 07/17/2023 07:12:16 07/16/20 23 07/21/2023 RPR SCREE N RPR NON-RE ACTIVE nonrea ctive Not Available [facility] (Lab) [address] [place], [address], 07/21/2023 09:44:40 Result Notes None recorded. Problems Name Problem SNOMED Code Status Onset Date Resolution Date Notes Provider Name and Address Organization Details Recorded Time Pleuritic pain 3985860 Active Not Available [facility] 3 01:07:49 Tooth disorder 032283829 Active 2021 Not Available [facility] 3 01:07:49 Toothache 64464582 Active 2021 Not Available [facility] 3 01:07:49 Vitamin D deficiency 44199790 Active 2021 Not Available [facility] 3 01:07:49 Upper respiratory infection 31686130 Active 2022 Not Available [facility] 3 01:07:50 Hyperlipidemi a 48640615 Active 2021 Not Available [facility] 3 01:07:50 Moderate recurrent major depression 92649648 Active 2022 Letitia mcintosh MD [address], [place], [address] , [employer] 3 14:41:48 Allergic rhinitis 34822749 Active 2022 Letitia mcintosh MD [address], [place], [address] , [employer] 3 14:42:30 Serum vitamin B12 below reference range 652060950 Active 2022 Letitia mcintosh MD [address], [place], [address] , [employer] 3 14:51:41 Multiple skin tags 611308727 Active 2022 Maryellen Arzola null, [facility] 3 09:34:02 Vaginitis 29661783 Active 2022 Maryellen Arzola null, [facility] 3 11:15:32 Abscess 179454903 Active 2023 Ann Marie Bangura RN null, [facility] 4 13:59:42 Folliculitis 55254842 Active 2023 Letitia mcintosh MD [address], [place], [address] , [facility] 4 14:34:04 Hyperglycemia 70314157 Active 2023 Letitia mcintosh MD [address], [place], [address] , [facility] 4 14:45:27 Abscess of skin and/or subcutaneous tissue 93032571 Active 2023 Bradly hoffman MD [address], [place], [address] , [facility] 4 14:55:21 Infection of skin and/or subcutaneous tissue 55741124 Active 2023 Clara Rivas MA null, [facility] 4 11:45:53 Pain of ear 945381630 Active 2023 Clara Rivas MA null, [facility] 4 10:55:07 Problem Notes None recorded. Procedures Surgical History Date Name Laterality Status Provider Name and Address Organization Details Recorded Time 11/12/19 24 Blank Procedure completed Bradly aponte MD [address], [place], [address], [facility] 11/12/2023 13:35:43 07/24/20 20 irrigation of root canal completed Not Available [facility] 10/08/2022 00:54:26 08/25/19 18 Cholecystectomy completed Not Available [facility] 10/08/2022 00:54:26 repair of ligament completed Not Available [facility] 10/08/2022 00:54:26 excision of lymph node completed Not Available [facility] 10/08/2022 00:54:26 Tubal Ligation completed Not Available [facility] 10/08/2022 00:54:26 Imaging Results None recorded. Procedure Notes None recorded. Medical Equipment None Reported. Allergies No known drug allergies Medications Name Sig Start Date Stop Date Status Note LastModified by Organization Details LastModified Time cyclobenz aprine 10 mg tablet 10/14 completed Not Available Not Available Not Available amoxicill in 500 mg capsule Take 1 capsule 3 times a day by oral route for 7 days. 10/22 completed Not Available Not Available Not Available promethaz ine-DM 6.25 mg-15 mg/5 mL oral syrup TAKE 5 ML BY MOUTH EVERY 4 TO 6 HOURS NEEDED FOR COUGH 11/09 completed Not Available Not Available Not Available prednison e 10 mg tablet Take by oral route. 10/14 completed Not Available Not Available Not Available doxycycli ne hyclate 100 mg capsule TAKE 1 CAPSULE BY MOUTH TWICE DAILY 11/09 completed Not Available Not Available Not Available clindamyc in HCl 300 mg capsule TAKE 1 CAPSULE BY MOUTH EVERY 6 HOURS FOR 10 DAYS 11/09 completed Not Available Not Available Not Available cetirizin e 10 mg tablet TAKE 1 TABLET BY MOUTH EVERY DAY active Not Available Not Available No t Available azithromy analy 250 mg tablet TAKE 2 TABLETS BY MOUTH TODAY THEN 1 TABLET BY MOUTH DAILY FOR 4 DAYS 11/09 completed Not Available Not Available Not Available fluconazo le 150 mg tablet TAKE 1 TABLET BY MOUTH EVERY DAY active Not Available Not Available No t Available cephalexi n 250 mg capsule TAKE 1 CAPSULE BY MOUTH EVERY 6 HOURS FOR 7 DAYS active Not Available Not Available No t Available hydrocodo ne 5 mg-acetam inophen 325 mg tablet Take 1 tablet every 4 hours by oral route. 06/04 completed Not Available Not Available Not Available Levaquin 750 mg tablet Take 1 tablet every day by oral route for 7 days. 02/14 completed Not Available Not Available Not Available Debrox 6.5 % ear drops INSTILL 5 DROPS INTO AFFECTED EAR(S) BY OTIC ROUTE 2 TIMES PER DAY x 4 days prior to appt 05/07 completed PRN Not Available Not Available Not Available sumatript an 50 mg tablet TK 1 T PO AT ONSET OF MIGRAINE . MAY REPEAT AFTER 2 HOURS IF HOGUE RETURNS. DONT EXCEED 4 TS IN 24 H 10/14 completed Not Available Not Available Not Available topiramat e 25 mg tablet 06/28 completed Not Available Not Available Not Available phentermi ne 37.5 mg tablet TAKE 1 TABLET BY MOUTH EVERY DAY 11/01 completed Not Available Not Available Not Available sulfameth oxazole 800 mg-trimet hoprim 160 mg tablet TAKE 1 TABLET BY MOUTH TWICE DAILY FOR 5 DAYS active Not Available Not Available No t Available hydrocodo ne 10 mg-acetam inophen 325 mg tablet 10/14 completed Not Available Not Available Not Available tramadol 50 mg tablet TAKE ONE TABLET BY MOUTH EVERY 6 HOURS NEEDED active Not Available Not Available No t Available amoxicill in 875 mg tablet TAKE 1 TABLET BY MOUTH EVERY 12 HOURS FOR 7 DAYS 11/09 completed Not Available Not Available Not Available nifedipin e 10 mg capsule TK 1 C PO Q 4 H 12/05 completed Not Available Not Available Not Available meclizine 25 mg tablet 1 Tablet as needed 05/07 completed Not Available Not Available Not Available benzonata te 100 mg capsule TK 1 C PO TID FOR 7 DAYS PRN 07/15 completed Not Available Not Available Not Available oseltamiv ir 75 mg capsule Take 1 capsule every day by oral route for 10 days. 10/13 completed Not Available Not Available Not Available prednison e 50 mg tablet 06/28 completed Not Available Not Available Not Available ceftriaxo ne 500 mg solution for injection Take 500 mg every day by injectio n route. 11/09 completed Not Available Not Available Not Available ergocalci ferol (vitamin D2) 1,250 mcg (50,000 unit) capsule TAKE 1 CAPSULE BY MOUTH EVERY WEEK active Not Available Not Available No t Available methylpre dnisolone 4 mg tablets in a dose pack FOLLOW PACKAGE DIRECTIO NS 11/09 completed Not Available Not Available Not Available ondansetr on 4 mg disintegr ating tablet 08/11 completed Not Available Not Available Not Available fluticaso ne propionat e 50 mcg/actua tion nasal spray,ed[employer] pension SHAKE LIQUID AND USE 2 SPRAYS IN EACH NOSTRIL EVERY DAY active Not Available Not Available No t Available sertralin e 50 mg tablet Take 1 tablet every day by oral route for 30 days. 07/15 completed Not Available Not Available Not Available doxycycli ne hyclate 100 mg tablet TAKE 1 TABLET BY MOUTH TWICE DAILY FOR 7 DAYS 11/09 completed Not Available Not Available Not Available loratadin e 10 mg tablet Take 1 tablet(s ) every day by oral route as needed. active Not Available Not Available No t Available naproxen 500 mg tablet Take 1 tablet twice a day by oral route. 06/04 completed Not Available Not Available Not Available amoxicill in 875 mg-potass ium clavulana te 125 mg tablet TAKE 1 TABLET BY MOUTH TWICE DAILY X 7 DAYS active Not Available Not Available No t Available escitalop joby 10 mg tablet Take 1 tablet every day by oral route for 90 days. 07/25 completed Not Available Not Available Not Available escitalop joby 20 mg tablet TAKE 1 TABLET BY MOUTH DAILY active Not Available Not Available No t Available Heather-BE 0.35 mg tablet TK 1 T PO QD 12/05 completed Not Available Not Available Not Available rosuvasta tin 20 mg tablet TAKE 1 TABLET BY MOUTH EVERY DAY active Not Available Not Available No t Available rosuvasta tin 40 mg tablet TAKE 1 TABLET BY MOUTH EVERY DAY 10/22 completed Not Available Not Available Not Available nitrofura ntoin monohydra te/macroc rystals 100 mg capsule TAKE 1 CAPSULE BY MOUTH EVERY 12 HOURS FOR 5 DAYS WITH FOOD 11/09 completed Not Available Not Available Not Available Vitamin C 11/01 completed Gummies Not Available Not Available Not Available Fish Oil 2 CAPS Daily 05/07 completed Not Available Not Available Not Available ProAir HFA 90 mcg/actua tion aerosol inhaler 06/28 completed Not Available Not Available Not Available fenofibra te nanocryst allized 48 mg tablet Take 1 tablet every day by oral route. 08/11 completed Not Available Not Available Not Available cholecalc iferol (vitamin D3) 1,250 mcg (50,000 unit) capsule TAKE ONE CAPSULE BY MOUTH EVERY WEEK active Not Available Not Available No t Available Kurvelo (28) 0.15 mg-0.03 mg tablet TAKE 1 TABLET BY MOUTH EVERY DAY 11/01 completed Not Available Not Available Not Available Multi Vitamin 2 gummies daily 05/07 completed Not Available Not Available Not Available Vienva 0.1 mg-20 mcg tablet TK 1 T PO QD 09/21 completed Not Available Not Available Not Available Vitals Date Recorded Body weight Body mass index (BMI) Body height Heart rate Oxygen saturation Oxygen saturation in Arterial blood by Pulse oximetry Systolic blood pressure Diastolic blood pressure Provider Name and Address Organization Details Last Updated DateTime 3 36713.9 9 g 32.1 kg/m2 172.72 cm 82 /min 98 % 98 % 130 mm[Hg] 80 mm[Hg] Katy Norton MA [facility] [employer] [facility] 3 14:21:43 Date Recorded Body weight Body mass index (BMI) Body height Body temperature Systolic blood pressure Diastolic blood pressure Provider Name and Address Organization Details Last Updated DateTime 4 98256.2 2 g 27.5 kg/m2 172.72 cm 97.6 [degF] 128 mm[Hg] 66 mm[Hg] GIANNA Drummond [facility] [employer] [facility] 4 14:14:26 Date Recorded Body height Body mass index (BMI) Body weight Body temperature Heart rate Respiratory rate Oxygen saturation Oxygen saturation in Arterial blood by Pulse oximetry Systolic blood pressure Diastolic blood pressure Provider Name and Address Organization Details Last Updated DateTime 4 172.72 cm 27.5 kg/m2 58186.2 2 g 97.6 [degF] 100 /min 14 /min 97 % 97 % 120 mm[Hg] 80 mm[Hg] Pilar Coley [facility] [employer] 4 12:48:17 Social History Question Answer Notes LastModified by Organizat ion Details LastModified Time Tobacco Smoking Status Never Smoker Not Available [employer] 10/08/2022 00:48:36 Do You Have An Advance Directive? No [id number] Information not available 10/08/2022 What Is Your Level Of Alcohol Consumption? None [id number].[id number] Information not available 10/08/2022 What Is Your Level Of Caffeine Consumption? Moderate [id number].[id number] Information not available 10/08/2022 How Much Tobacco Do You Chew? None [id number] Information not available 10/08/2022 In The 14 Days Before Symptom Onset, Have You Had Close Contact With A Laboratory-confir med COVID-19 While That Case Was Ill? No [id number] Information not available 10/08/2022 In The 14 Days Before Symptom Onset, Have You Had Close Contact With A Person Who Is Under Investigation For COVID-19 While That Person Was Ill? No [id number] Information not available 10/08/2022 What Type Of Diet Are You Following? REGULAR [id number].[id number] Information not available 10/08/2022 Which Illicit Or Recreational Drugs Have You Used? Cannabis Daily Smoker [id number] Information not available 10/08/2022 Do You Or Have You Ever Used E-cigarettes Or Vape? 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 Yes [id number] [id number] Information not available 10/08/2022 What Was The Date Of Your Most Recent Tobacco Screening? 11/10/2023 Information not available 11/10/2023 Do You Or Have You Ever Used Smokeless Tobacco? Never Used Smokeless Tobacco [id number].[id number] Information not available 10/08/2022 Do You Use Sunscreen Routinely? Yes MIGRATION.[id number] Information not available 10/08/2022 How Many Years Have You Smoked Tobacco? 0 [id number].58745 [id number] Information not available 10/08/2022 Do You Or Have You Ever Used Any Other Forms Of Tobacco Or Nicotine? No Information not available 11/10/2023 Sex: Unknown Functional Status Question Answer Note LastModified by Organizat ion Details LastModified Time What is your exercise level? Occasional [id number] Information not available 10/08/2022 Mental Status None recorded. Family History Relationship Description Onset Age of this Age Resolved Age Notes LastModified by Organization Details LastModified Time Mother Hypertensive disorder [id number] Not available 10/08/2022 00:54:28 Mother Syncope [id number] Not available 10/08/2022 00:54:28 Mother Depressive disorder [id number] Not available 10/08/2022 00:54:28 Father Depressive disorder [id number].244 [id number] Not available 10/08/2022 00:54:28 Father Hyperlipidem ia [id number] Not available 10/08/2022 00:54:28 Medical History Condition Response NERVE DISEASE N BLINDNESS N RHEUMATIC FEVER N KIDNEY STONES N BLADDER PROBLEMS N MRSA N OTHER # 1 N POLIO N LUNG DISEASE/DISORDER N RADIATION / CHEMOTHERAPY N COPD N Other # 2 N BLOOD DISEASES N SURGERY N EAR OR HEARING PROBLEMS N MUMPS N BOWEL PROBLEMS N DEPRESSION (INCLUDING POST ) Y STROKE/TIA N ULCERS N BENIGN PROSTATIC HYPERPLASIA N MEASLES N MYOCARDIAL INFARCTION N OBESITY N GERD/NAUSEA N ANEURYSM N URINARY/BLADDER/KIDNEY PROBLEMS N CORONARY ARTERY DISEASE (CAD) N ADDICTION CONCERNS N ENDOMETRIOSIS N Impotence N USE OF BLOOD THINNERS N SKIN PROBLEMS N GASTROINTESTINAL DISORDER N PERIPHERAL VASCULAR DISEASE N MUSCLE,JOINT OR BONE PROBLEMS N GASTROINTESTINAL BLEEDING N BLOOD CLOTS N ASTHMA N CATARACTS N ERECTILE DYSFUNCTION N VARICOSITIES N GI PROBLEMS N Low Testosterone N INFERTILITY N AIDS/HIV N CHEMOTHERAPY / RADIATION N LIVER DISEASE N MALE HYPOGONADISM N HYPERTENSION Y Deficiency Y ANXIETY DISORDER Y BLOOD TRANSFUSION N ANEMIA/BLOOD DISORDER N CHRONIC EAR INFECTIONS N BRONCHITIS N TUBERCULOSIS N GLAUCOMA N FOOT PROBLEM N DIVERTICULITIS N SLEEP APNEA N CHICKENPOX N INFECTIOUS DISEASE N HEART ARRHYTHMIA N PROSTATE N INSOMNIA N HIGH CHOLESTEROL / HYPERLIPIDEMIA Y HYPERTHYROIDISM N EYE PROBLEMS N NEUROLOGICAL PROBLEMS N EDEMA N CHRONIC PAIN SYNDROME N HYPOTHYROIDISM N CAROTID BLOCKAGE N CONSTIPATION N BACK / NECK PROBLEMS N ATHEROSCLEROSIS N BREAST PROBLEMS N DIALYSIS N ECZEMA N OSTEOPOROSIS N ARTHRITIS N APPENDICITIS N DIABETES, TYPE N BAD TEETH N ENT N HEARTBURN / REFLUX N AUTISM SPECTRUM DISORDER (ASD) N HEPATITIS / LIVER DISEASE N GOUT N SLEEP DISORDER N ALZHEIMER'S DISEASE N Brain Problems N HERPES N DEMENTIA N HEADACHES/MIGRAINES N SEIZURES/EPILEPSY N VASCULAR DISEASE N PACEMAKER N Blood Disorder N DIZZINESS N HEART DISEASE/HEART PROBLEMS N KIDNEY DISEASE N MULTIPLE SCLEROSIS N CARDIAC ARRHYTHMIA N CANCER: SPECIFY N ATRIAL FIBRILLATION N Gall Stones N PULMONARY EMBOLISM N AUTOIMMUNE DISEASE N Gynecological HistoryNo gynecological history recorded. Obstetrics History GPAL:G 4 P 3 0 1 3 Type Value Full Term 3 Spontaneous 1 Living 3 Total 4 Immunizations Vaccine Type Date Status Note Provider Nam e and Address Organization Details Recorded Time influenza, unspecified formulation 7 completed Not Available [facility] 10/08/2022 01:26:24 Influenza, split virus, quadrivalent, PF 0 completed Not Available [facility] 10/08/2022 01:26:25 Influenza, split virus, quadrivalent, PF 8 completed Not Available [facility] 10/08/2022 01:26:25 Past Encounters Encounter ID Performer Location Encounter Start Date Encounter Closed Date Diagnosis/Indication Diagnosis SNOMED-CT Code Diagnosis ICD10 Code Diagnosis Note [id number] Letitia mcintosh MD [facility] Internal Med [facility] [address] [facility] [address] 10/22/2022 14:04:12 10/22/2022 14:53:07 Screening - NAD 164225803 Z13.9 PAP: Get this Get flu shotDoes not want the COVID 19 vaccineGet tdap if not doneDeclin es all vaccines RTC in 6 months, do labs, ER if worse, she did verbalize her understand ing of the above Gynecologi c examination 28182134 Z01.419 Moderate r ecurrent major depression 20594268 F33.1 On escitalopr am 20mg dailyNot suicidal or homicidal Vitamin D deficiency 347 93646 E55.9 Get vit d level Allergic rhinitis 116523 04 J30.9 On flonaseOn zyrtec Long-term drug therapy 625149630 Z79.899 Serum kassandra min B12 below reference range 626763547 R79.89 [id number] Letitia mcintosh MD [facility] Internal Med [facility] [address] [facility] [address] [place] [address] 11/10/2023 14:03:56 11/10/2023 15:08:50 Screening - NAD 120926021 Z13.9 PAP: Sees Dr Gokul PADILLA as per her today 11/10/2023 did see him in 07/2023 Get flu shotDoes not want the COVID 19 vaccineGet tdap if not doneDeclin es all vaccines again 11/10/2023 RTC in 3 months, do labs, ER if worse, she did verbalize her understand ing of the above Moderate r ecurrent major depression 99332516 F33.1 On escitalopr am 20mg daily, states that she is not taking this 11/10/2023 , does wellNot suicidal or homicidal Vitamin D deficiency 347 43281 E55.9 Get vit d level Allergic rhinitis 184106 04 J30.9 On flonaseOn zyrtec Serum kassandra min B12 below reference range 612024675 R79.89 Hyperlipidemia 56295203 E78.5 On rosuvastat in 20mg daily Folliculitis 19251276 L7 3.9 Likely has a cyst on the pubic areaGet on cephalexin 250mg po qid for 7 days[address] Dozier 11/12/2023 at 11.30amGet on tramadol d/t pain Hyperglycemia 89573732 R 73.9 Get A1C level [id number] Bradly hoffman MD [facility] General Surgery [address] [facility], [facility] [address] [place] [address] 11/12/2023 11:53:12 11/12/2023 13:37:31 Abscess of skin and/or subcutaneous tissue 59463163 L02.91 pubic Health Concerns Section Related Observation LastModified by Organization Detai ls LastModified Time None Recorded Concern Status LastModified by Organization Details LastModified Time None Recorded Advance Directives Directive N: Payers Encounter Date Sequence Insurance Name Policy Number Policy Leonard Covered Member ID Leonard Member ID Guarantor Name 10/22/2022 1 [facility] [id number] Steve Stevens [id number] Lukas Stevens 11/10/2023 1 [facility] [id number] Steve Stevens [id number] Lukas Stevens 11/12/2023 1 [facility] [id number] Steve Stevens [id number] Lukas Stevens Notes Date Note Type Note Provider Name and Address Organization Details Recorded Time 10/22/2022 text/html OV 10/22/2022:He re to restablish care Past Hx:DepressionAllerg y Reviewed social family and surgical history Here to get labs, feels well Murtuza Bahrainwala, MD [address], [place], [address], [employer] 10/22/2022 14:52:04 11/10/2023 text/html OV 10/22/2022:He re to restablish care Past Hx:DepressionAllerg y Reviewed social family and surgical history Here to get labs, feels well OV 11/10/2023: ACV and f/uHas noted a cyst in the pubic area, is tender and swollen and red, states that this happened about 2-3 day ago but is not quite sure, no fevers or chills, she states that in Aug of this year she was seen in the ER for a similar cyst but on the L mid abd wall and was treated with IV antibioticsNo new labs Letitia Salazar MD [address], [place], [address], [employer] 11/10/2023 14:52:01 11/12/2023 text/html patient complain ed of painful swelling and redness in her pubic area for the last 3 days. Denies fevers chills. Denies redness. Has had previous abscesses drained in her abdominal wall. Bradly Benavides MD [address], [place], [address], [employer] 11/12/2023 14:55:34 OBGyn Episode No OBEpisode recorded.
--- OUTSIDE RECORDS SUMMARY | 2024-09-02 10:59 | XMS_ITS | CONTINUITY OF CARE DOCUMENT ---
Author Name shaziamarihumberto Address Unknown Organization [facility] Address [address] [place] [address] [address] [place] [address] Phone [phone] Care Team Providers Care Rail Transit Operator Name Role Phone Derrick COLE, Chika Unavailable [phone] RAMOS COLE, JACQUES Unavailable [phone] RAMOS COLE, JACQUES Unavailable [phone] INSURANCE PROVIDERS Payer name Policy type / Coverage type [place] red republican ID [facility] [id number] Other [id number]
--- OUTSIDE RECORDS SUMMARY | 2024-09-02 10:59 | XMS_ITS | Clinical Summary ---
Author Organization [facility] Address [address] [place] [address] Phone Care Team Providers Care Data Processing Supervisor Name Role Phone Letitia Salazar MD Primary Care Provider Allergies No known active allergies Medications naproxen (NAPROSYN) 500 MG Tablet Take 1 Tab by mouth 2 times daily as needed for Pain. 20 Tab 0 02/25/2016 Active cyclobenzaprine (FLEXERIL) 10 MG Tablet Take 1 Tab by mouth 3 times daily as needed for Muscle spasms for up to 20 doses. 20 Tab 0 02/25/2016 Active HYDROcodone-acet aminophen (NORCO) 5-325 MG Tablet Take 1-2 Tabs by mouth every 4 hours as needed for Pain. 20 Tab 0 02/25/2016 Active escitalopram (Lexapro) 10 MG Tablet Take 10 mg by mouth daily. Active rosuvastatin (Crestor) 10 MG Tablet Take 10 mg by mouth daily. Active loratadine (CLARITIN) 10 MG Tablet Take 10 mg by mouth daily. Active Social History Tobacco Use Types Packs/Day Years Used Date Smoking Tobacco: Never Smokeless Tobacco: Never Alcohol Use Standard Drinks/Week Comments No 0 (1 standard drink = 0.6 oz pur e alcohol) Comments No Sex and Gender Information Value Date Recorded Sex Assigned at Not on file Legal Sex Female 10:41 PM CDT Gender Identity Not on file Sexual Orientation Not on file Last Filed Vital Signs Vital Sign Reading Time Taken Comments Blood Pressure 135/87 08/24/2023 2:48 PM SUPERVISOR MET[employer]ANGING Pulse 92 08/24/2023 2:48 PM SUPERVISOR [employer] Temperature 36.8 ??C (98.2 ??F) 08/24/2023 2:48 PM CS T Respiratory Rate 16 08/24/2023 2:48 PM SUPERVIS[employer] Oxygen Saturation 97% 08/24/2023 2:48 PM SUPERVISOR [employer] Inhaled Oxygen Concentration - - Weight 88 kg (194 lb) 08/24/2023 2:48 PM SUPERVISOR [employer]ANG[employer] Height 170.2 cm (5' 7 ) 08/24/2023 2:48 PM SUPERVISOR [employer]ANG[employer] Body Mass Index 30.38 08/24/2023 2:48 PM SUPERVISOR [employer]ANG[employer] Plan of Treatment Not on file Insurance [place] [address] Care Teams Data Processing Supervisor Relationship Specialty Start Date End Date Letitia Salazar MD [address] [place] [address] PCP - General Internal Medicine 05/05/20
--- OUTSIDE RECORDS SUMMARY | 2024-09-02 10:59 | XMS_ITS | Referral Summary ---
Author Organization [facility] Address [address] [place] [address] Care Team Providers Care Horticulture Teacher Name Role Phone Freddy Salazar MD Primary Care Provide r Allergies No known active allergies Medications ondansetron ODT (ZOFRAN-ODT) 4 mg disintegrating tablet Dissolve 1 tablet oral every 4 hours as needed for nausea or vomiting. 15 tablet 9 Active meclizine (ANTIVERT) 25 mg tabletIndications: Vertigo Take 1 tablet (25 mg total) by mouth 3 (three) times a day as needed for dizziness for up to 15 doses 15 tablet 9 Active Active Problems No known active problems Social History Tobacco Use Types Packs/Day Years Used Date Smoking Tobacco: Never Smokeless Tobacco: Never Alcohol Use Standard Drinks/Week Comments Yes 0 (1 standard drink = 0.6 oz pur e alcohol) occasionally Personal Safety Answer Date Recorded Getting School Help Needed Not on file 07/25 Comments No Sex and Gender Information Value Date Recorded Sex Assigned at Not on file Legal 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 Female 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 Gender Identity Not on file Sexual Orientation Not on file Last Filed Vital Signs Vital Sign Reading Time Taken Comments Blood Pressure 132/97 03/29/2020 4:38 PM CDT Pulse 102 03/29/2020 4:38 PM CDT Temperature 36.3 ??C (97.3 ??F) 03/29/2020 4:38 PM CD T Respiratory Rate 22 03/29/2020 4:38 PM CDT Oxygen Saturation 98% 03/29/2020 4:38 PM CDT Inhaled Oxygen Concentration - - Weight 104.3 kg (230 lb) 03/29/2020 4:38 PM CDT Height 170.2 cm (5' 7 ) 03/29/2020 4:38 PM CDT Body Mass Index 36.02 03/29/2020 4:38 PM CDT Plan of Treatment Not on [place] [address] [place] [address] Member Subscriber Plan / Payer (Ef fective 2019-Present) Name:Lukas Matias Relation to Subscriber:Self Name:Lukas Matias Payer ID:[id number] (NAIC) Type:[facility] Address: [address] [facility] HMO/PPO Address: [address] [address] [place] [address] [facility] CHOICE PLUS [facility] HMO/PPO Address: [address] [address] [place] [address] [facility] HMO/PPO Address: [address] [address] [place] [address] [facility] CHOICE PLUS [facility] HMO/PPO Address: [address] [address] [place] [address] Care Teams Horticulture Teacher Relationship Specialty Start Date End Date Freddy Salazar MD [address] [address] PCP - General 10/13/19
--- OUTSIDE RECORDS SUMMARY | 2024-09-02 11:00 | XMS_ITS | Clinical Summary ---
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
--- OUTSIDE RECORDS SUMMARY | 2024-09-02 11:01 | XMS_ITS | CONTINUITY OF CARE DOCUMENT ---
Author Name shaziamarihumberto Address Unknown Organization [facility] Address [address] [place] [address] [address] [place] [address] Phone [phone] Care Team Providers Care Donation Worker Name Role Phone Derrick COLE, Chika Unavailable RAMOS COLE, JACQUES Unavailable RAMOS COLE, JACQUES Unavailable [phone] INSURANCE PROVIDERS Payer name Policy type / Coverage type [place] red green party ID [facility] [id number] Other [id number]
[2024-09-02 11:17] LABS: EDCOVIDSCREEN Negative (Negative); EDINFLUASCREEN Positive (Negative); EDINFLUBSCREEN Negative (Negative)
== END 2024-09-02 11:17 | disposition home or self-care (01) ==
PROVIDERS: Emergency Provider Registered Nurse; PCP Internal Medicine
DX: J10.1 Influenza due to other identified influenza virus with other respiratory manifestations (principal); J45.909 Unspecified asthma, uncomplicated; Z20.822 Contact with and (suspected) exposure to COVID-19
CPT/HCPCS: 87426; 87804; 99203; G0463

== ENCOUNTER 2025-02-09 16:22 | Emergency (ER) | payer OTHER, SELFPAY ==
--- OUTSIDE RECORDS SUMMARY | 2025-02-09 16:24 | XMS_ITS | Clinical Summary ---
Author Organization [facility] Address [address] [place] [address] Phone Care Team Providers Care Tube Cutter Operator Name Role Phone Letitia Salazar MD Primary [...] Comments Blood Pressure 135/87 08/24/2023 2:48 PM WASHER MACHINE Pulse 92 08/24/2023 2:48 PM WASHER MACHINE Temperature 36.8 C (98.2 F) 08/24/2023 2:48 PM WASHER MACHINE Respiratory Rate 16 08/24/2023 2:48 PM WASHER MACHINE Oxygen Saturation 97% 08/24/2023 2:48 PM WASHER MACHINE Inhaled Oxygen Concentration - - Weight 88 kg (194 lb) 08/24/2023 2:48 PM WASHER MACHINE Height 170.2 cm (5' 7) 08/24/2023 2:48 PM WASHER MACHINE Body Mass Index 30.38 08/24/2023 2:48 PM WASHER MACHINE Plan of Treatment Not on file Insurance [facility] Care Teams Tube Cutter Operator Relationship Specialty Start Date End Date Letitia Salazar MD [address] [place] [address] PCP - General Internal Medicine 05/05/20
--- OUTSIDE RECORDS SUMMARY | 2025-02-09 16:24 | XMS_ITS | Data Portability ---
Author Organization [place] [facility] [employer], Main Office Address [address] [place] [address] Assessment Encounter Date Assessment Date Assessment LastModified [...] Modified Time Details Appointments None recorded. Lab glycohemogl obin, total, blood 2023 024 [email or web address] Not available 4 11:06:25 vitamin D, 25-hydroxy, total, serum 2023 024 [email or web address] Not available 4 10:02:40 lipid panel, serum 2023 024 [email or web address] Not available 09:06:30 CMP, serum or plasma 2023 024 [email or web address] Not available 4 09:06:30 CBC w/ auto diff 2023 024 [email or web address] Not available 4 10:02:41 TSH + free T4, serum 2023 024 [email or web address] Not available 4 09:06:30 vitamin B12 + folate, serum or blood 2023 024 [email or web address] Not available 4 10:02:41 vitamin D, 25-hydroxy, total, serum 2022 023 [...] blood 2022 023 Not available 3 17:16:39 Referral general surgeon referral 2023 024 [email or web address] Bradly Umana MD, [address], [place], [address], 4 08:22:12 obstetricia n and gynecologis t referral 2022 023 James Hodgson MD, [address] [facility] [address], [place], [address], 3 15:01:33 Procedures None recorded. Surgeries None recorded. Imaging None recorded. Medication Orders cephalexin 250 mg capsule 2023 024 [facility][id number], [address], [place], [place], [id number], 4 15:07:06 tramadol 50 mg tablet 2023 024 [facility] #29162, [address], [place], [place], [id number], 4 14:53:50 escitalopra m 20 mg tablet 2022 023 eva vallejo [facility] #80414, [address], [place], [place], [id number], 4 14:51:24 fluticasone propionate 50 mcg/actuati on nasal spray,suspe nsion 2022 023 [facility] #02197, [address], [place], [place], [id number], 3 14:50:30 cetirizine 10 mg tablet 2022 023 [facility] #24087, [address], [place], [place], [id number], 3 14:50:41 Patient TargetsNo targets recorded. Patient InstructionsNo instructions recorded. 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 Not Available [facility] (Lab) [address] [place], [address], 07/16/2023 20:05:21 07/16/20 23 07/16/2023 HEPAT ITIS ACUTE PANEL hepatitis A virus signal/cutof 0.01 0.00-0 .79 Not Available [facility] (Lab) [address] [place], [address], 07/16/2023 20:05:21 07/16/20 23 07/16/2023 HEPAT ITIS ACUTE PANEL hepatitis B core IgM antibody NON-RE ACTIVE non-re active Not Available [facility] (Lab) [address] [place], [address], 07/16/2023 20:05:21 07/16/20 23 07/16/2023 HEPAT ITIS ACUTE PANEL HBV core IgM signal/cutof f 0.03 0.00-1 .10 Not Available [facility] (Lab) [address] [place] [address], [address], 07/16/2023 20:05:21 07/16/20 23 07/16/2023 HEPAT ITIS ACUTE PANEL hepatitis B surface antigen NON-RE ACTIVE non-re active All speci mens react tarah for Hepat itis B Surfa ce Antig en will refle x to refer ral lab confi rmato ry testi ng. Not Available [facility] (Lab) [address] [place] [address], [address], 07/16/2023 20:05:21 07/16/20 23 07/16/2023 HEPAT ITIS ACUTE PANEL HBV surf.antigen signal/cutof f 0.07 0.00-0 .99 Not Available [facility] (Lab) [address] [place] [address], [address], 07/16/2023 20:05:21 07/16/20 23 07/16/2023 HEPAT ITIS ACUTE PANEL hepatitis C antibody NON-RE ACTIVE non-re active All speci mens react tarah for Hepat itis C Virus antib dionisio will refle x to PCR confi rmato ry testi ng. Pleas e allow 48-72 hours for resul ts. Not Available [facility] (Lab) [address] [place] [address], [address], 07/16/2023 20:05:21 07/16/20 23 07/16/2023 HEPAT ITIS ACUTE PANEL hepatitis C virus signal/cutof 0.01 0.00-0 .99 Not Available [facility] (Lab) [address] [place], [address], 07/16/2023 20:05:21 07/16/20 23 07/16/2023 HIV COMBO : HIV 1/2 AB,P2 4 AG HIV combo assay NON-RE ACTIVE nonrea ctive The HIV combo test scree ns for HIV-1 , HIV-2 , HIV p24 Ag, and HIV group O. Any react tarah scree n resul t will be sent for PCR confi rmato ry testi ng. Not Available [facility] (Lab) [address] [place], [address], 07/16/2023 20:05:05 07/16/20 23 07/16/2023 HIV COMBO : HIV 1/2 AB,P2 4 AG signal/cutof f 0.17 0.00-0 .99 Not Available [facility] (Lab) [address] [place], [address], 07/16/2023 20:05:05 07/16/20 23 07/16/2023 CT/NG (CHLA MYDIA /NEIS SERIA ) DNA chlamydia trachomatis DNA NOT DETECT ED Not Available [facility] (Lab) [address] [place], [address], 07/16/2023 20:23:46 07/16/20 23 07/16/2023 CT/NG (CHLA MYDIA /NEIS SERIA ) DNA neisseria gonorrhea DNA NOT DETECT ED Not Available [facility] (Lab) [address] [place], [address], 07/16/2023 20:23:46 07/16/20 23 07/17/2023 HERPE S/HSV [...] detec chapin to HSV-1 . Not Available [facility] (Lab) [address] [place], [address], 07/17/2023 07:12:16 07/16/20 23 07/17/2023 HERPE S/HSV [...] norma corre lated . Perfo rmed at: [facility] [address] [facility], [place] [address] Lab Direc tor: Cuco mathews PhD, Phone : [phone] Not Available [facility] (Lab) [address] [place], [address], 07/17/2023 07:12:16 07/16/20 23 07/21/2023 RPR SCREE N RPR NON-RE ACTIVE nonrea ctive Not Available [facility] (Lab) [address] [place], [address], 07/21/2023 09:44:40 Result Notes None recorded. Problems Name Problem SNOMED Code Status Onset Date Resolution Date Notes Provider Name and Address Organization Details Recorded Time Pleuritic pain 8961632 Active Not Available [facility] 3 01:07:49 Tooth disorder 347360289 Active 2021 Not Available [facility] 3 01:07:49 Toothache 88060799 Active 2021 Not Available [facility] 3 01:07:49 Vitamin D deficiency 24667028 Active 2021 Not Available [facility] 3 01:07:49 Upper respiratory infection 47552077 Active 2022 Not Available [facility] 3 01:07:50 Hyperlipidemi a 69627382 Active 2021 Not Available [facility] 3 01:07:50 Moderate recurrent major depression 45315985 Active 2022 Letitia mcintosh MD [address], [address], [place], [address] , Pembe Panjur [facility] [employer] 3 14:41:48 Allergic rhinitis 59064462 Active 2022 Letitia mcintosh MD [address], [place], [address] , Pembe Panjur [facility] [employer] [facility] 3 14:42:30 Serum vitamin B12 below reference range 758387180 Active 2022 Letitia mcintosh MD [address], [place], [address] , [facility] 3 14:51:41 Multiple skin tags 337793206 Active 2022 Maryellen Arzola null, [facility] 3 09:34:02 Vaginitis 56336124 Active 2022 Maryellen Arzola null, [facility] 3 11:15:32 Abscess 331359202 Active 2023 Ann Marie Bangura RN null, [facility] 4 13:59:42 Folliculitis 96569795 Active 2023 Letitia mcintosh MD [address], [address], [place], [address] , [facility] 4 14:34:04 Hyperglycemia 88814990 Active 2023 Letitia mcintosh MD [address], [address], [place], [address] , [facility] 4 14:45:27 Abscess of skin and/or subcutaneous tissue 98223601 Active 2023 Bradly hoffman MD [address], [address], [place], [address] , [facility] 4 14:55:21 Infection of skin and/or subcutaneous tissue 68692010 Active 2023 Clara Rivas MA null, [facility] 4 11:45:53 Pain of ear 355761840 Active 2023 Clara Rivas MA null, [facility] 4 10:55:07 Problem Notes None recorded. Procedures Surgical History Date Name Laterality Status Provider Name and Address Organization Details Recorded Time 11/12/19 24 Blank Procedure completed Bradly aponte MD [address], [address], [place], [address], [facility] 11/12/2023 13:35:43 12/15/20 20 irrigation of root canal completed Not Available [facility] 10/08/2022 00:54:26 08/25/19 18 Cholecystectomy completed Not Available [facility] 10/08/2022 00:54:26 repair of ligament completed Not Available [facility] 10/08/2022 00:54:26 excision of lymph node completed Not Available [facility] 10/08/2022 00:54:26 Tubal Ligation completed Not Available [facility] 10/08/2022 00:54:26 Imaging Results None recorded. Procedure [...] in Arterial blood by Pulse oximetry Systolic And Diastolic Provider Name and Address Organization Details Last Updated DateTime 3 97493.9 9 g 32.1 kg/m2 172.72 cm 82 /min 98 % 98 % 130/80 mm[Hg] Katy Norton MA [facility] [employer] 3 14:21:43 Date Recorded Body weight Body mass index (BMI) Body height Body temperature Systolic And Diastolic Provider Name and Address Organization Details Last Updated DateTime 11/10/2023 33535.22 g 27.5 kg/m2 172.72 cm 97.6 [degF] 128/66 mm[Hg] GIANNA Drummond [facility] [employer] [facility] 4 14:14:26 Date Recorded Body height Body mass index (BMI) Body weight Body temperature Heart rate Respiratory rate Oxygen saturation Oxygen saturation in Arterial blood by Pulse oximetry Systolic And Diastolic Provider Name and Address Organization Details Last Updated DateTime 4 172.72 cm 27.5 kg/m2 82192.2 2 g 97.6 [degF] 100 /min 14 /min 97 % 97 % 120/80 mm[Hg] Pilar Coley [facility] [employer] 4 12:48:17 Social History Question Answer Notes LastModified by Organizat ion Details LastModified Time Tobacco Smoking Status Never Smoker Not Available [facility] 10/08/2022 00:48:36 Do You Have An Advance Directive? No [id number] Information not available 10/08/2022 What Is Your Level Of Caffeine Consumption? Moderate [id number] Information not available 10/08/2022 How Much Tobacco Do You Chew? None [id number] Information not available 10/08/2022 In The 14 Days Before Symptom Onset, Have You Had Close Contact With A Laboratory-confir med COVID-19 While That Case Was Ill? No [id number] Information not available 10/08/2022 In The 14 Days Before Symptom Onset, Have You Had Close Contact With A Person Who Is Under Investigation For COVID-19 While That Person Was Ill? No [id number] Information not available 10/08/2022 What Type Of Diet Are You Following? REGULAR [id number] Information not available 10/08/2022 Which Illicit Or Recreational Drugs Have You Used? Cannabis Daily Smoker [id number] Information not available 10/08/2022 Are There Any Guns Present In Your Home? Yes [id number] Information not available 10/08/2022 What Was The Date Of Your Most Recent Tobacco Screening? 11/10/2023 Information not available 11/10/2023 Do You Use Sunscreen Routinely? Yes [id number] Information not available 10/08/2022 How Many Years Have You Smoked Tobacco? 0 [id number].[id number] Information not available 10/08/2022 Sex: Unknown Functional Status Question Answer Note LastModified by Organizat ion Details LastModified Time Do you or have you ever used any other forms of tobacco or nicotine? No Information not available 11/10/2023 What is your level of alcohol consumption? None [id number] Information not available 10/08/2022 Do you or have you ever used smokeless tobacco? 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 Never used electronic cigarettes MIGRATION.[id number] 026 Information not available 10/08/2022 What is your exercise level? Occasional [id number] 026 Information not available 10/08/2022 Mental Status None recorded. Family History Relationship Description Onset Age of this Age Resolved Age Notes LastModified by Organization Details LastModified Time Mother Hypertensive disorder [id number] Not available 10/08/2022 00:54:28 Mother Syncope [id number] Not available 10/08/2022 00:54:28 Mother Depressive disorder [id number].115 [id number] Not available 10/08/2022 00:54:28 Father Depressive disorder MIGRATION.065 [id number] Not available 10/08/2022 00:54:28 Father Hyperlipidem ia MIGRATION.[id number] Not available 10/08/2022 00:54:28 Medical History Condition Response BLINDNESS N NERVE DISEASE N RHEUMATIC FEVER N BLADDER PROBLEMS N KIDNEY STONES N MRSA N OTHER # 1 N POLIO N LUNG DISEASE/DISORDER N RADIATION / CHEMOTHERAPY N COPD N Other # 2 N BLOOD DISEASES N SURGERY N EAR OR HEARING PROBLEMS N MUMPS N DEPRESSION (INCLUDING POST ) Y BOWEL PROBLEMS N STROKE/TIA N ULCERS N BENIGN PROSTATIC HYPERPLASIA [...] influenza, unspecified formulation 7 completed Not Available [facility] 10/08/2022 01:26:24 Influenza, split virus, quadrivalent, PF 0 completed Not Available [facility] 10/08/2022 01:26:25 Influenza, split virus, quadrivalent, PF 8 completed Not Available [facility] 10/08/2022 01:26:25 Past Encounters Encounter ID Performer Location Encounter Start Date Encounter Closed Date Diagnosis/Indication Diagnosis SNOMED-CT Code Diagnosis ICD10 Code Diagnosis Note [id number] Letitia mcintosh MD [facility] Internal Med [facility] [address] [facility] [place] [address] 10/22/2022 14:04:12 10/22/2022 14:53:07 Screening - NAD 604110375 Z13.9 PAP: Get this Get flu shotDoes not want the COVID 19 vaccineGet tdap if not doneDeclin es all vaccines RTC in 6 months, do labs, ER if worse, she did verbalize her understand ing of the above Gynecologi c examination 53699722 Z01.419 Moderate r ecurrent major depression 47707090 F33.1 On escitalopr am 20mg dailyNot suicidal or homicidal Vitamin D deficiency 347 01711 E55.9 Get vit d level Allergic rhinitis 502422 04 J30.9 On flonaseOn zyrtec Long-term drug therapy 636506472 Z79.899 Serum kassandra min B12 below reference range 458479892 R79.89 [id number] Letitia mcintosh MD [facility] Internal Med [facility] [address] [place] [address] 11/10/2023 14:03:56 11/10/2023 15:08:50 Screening - NAD 946361614 Z13.9 PAP: Sees Dr Gokul PADILLA as per her today 11/10/2023 did see him in 07/2023 Get flu shotDoes not want the COVID 19 vaccineGet tdap if not doneDeclin es all vaccines again 11/10/2023 RTC in 3 months, do labs, ER if worse, she did verbalize her understand ing of the above Moderate r ecurrent major depression 13619978 F33.1 On escitalopr am 20mg daily, states that she is not taking this 11/10/2023 , does wellNot suicidal or homicidal Vitamin D deficiency 347 [address]6510 E55.9 Get vit d level Allergic rhinitis 712947 04 J30.9 On flonaseOn zyrtec Serum kassandra min B12 below reference range 458145303 R79.89 Hyperlipidemia 90106901 E78.5 On rosuvastat in 20mg daily Folliculitis 15856852 L7 3.9 Likely has a cyst on the pubic areaGet on cephalexin 250mg po qid for 7 days[address] Dozier 11/12/2023 at 11.30amGet on tramadol d/t pain Hyperglycemia 10236662 R 73.9 Get A1C level [id number] Bradly hoffman MD [facility] General Surgery [address] [place] [address] 11/12/2023 11:53:12 11/12/2023 13:37:31 Abscess of skin and/or subcutaneous tissue 18371556 L02.91 pubic Health Concerns Section Related Observation LastModified by Organization Detai ls LastModified Time None Recorded Concern Status LastModified by Organization Details LastModified Time None Recorded Advance Directives Directive N: Payers Insurance Date Sequence Insurance Name Policy Number Policy Leonard Covered Member ID Leonard Member ID Guarantor Name 01/02/2024 1 [facility] [id number] Steve Stevens [id number] Lukas Stevens Notes Date Note Type Note Provider Name and Address Organization Details Recorded Time 10/22/2022 text/html OV 10/22/2022:He re to restablish care Past Hx:DepressionAllerg y Reviewed social family and surgical history Here to get labs, feels well Letitia Salazar MD [address], [address], [place], [address], [place] [facility] 10/22/2022 14:52:04 11/10/2023 text/html OV 10/22/2022:He re to restablish care Past Hx:DepressionAllerg y Reviewed social family and surgical history Here to get labs, feels well OV 11/10/2023: ACV and f/Homeras noted a cyst in the pubic area, [...] new labs Letitia Salazar MD [address], [place], [address], [employer] 11/10/2023 14:52:01 11/12/2023 text/html patient complain ed of painful swelling and redness in her pubic area for the last 3 days. Denies fevers chills. Denies redness. Has had previous abscesses drained in her abdominal wall. Bradly Benavides MD [address], [address], [place], [address], [employer] [facility] [employer] 11/12/2023 14:55:34 OBGyn Episode No OBEpisode recorded.
--- OUTSIDE RECORDS SUMMARY | 2025-02-09 16:24 | XMS_ITS | Referral Summary ---
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 Gender Identity Not on file Sexual Orientation Not on file Last Filed Vital Signs Vital Sign Reading Time Taken Comments Blood Pressure 132/97 03/29/2020 4:38 PM CDT Pulse 102 03/29/2020 4:38 PM CDT Temperature 36.3 C (97.3 F) 03/29/2020 4:38 PM CDT Respiratory Rate 22 03/29/2020 4:38 PM CDT Oxygen Saturation 98% 03/29/2020 4:38 PM CDT Inhaled Oxygen Concentration - - Weight 104.3 kg (230 lb) 03/29/2020 4:38 PM CDT Height 170.2 cm (5' 7) 03/29/2020 4:38 PM CDT Body Mass Index 36.02 03/29/2020 4:38 PM CDT Plan of Treatment Not on file Insurance [facility] CHOICE PLUS [facility] CHOICE PLUS Care Teams Experimental Box Tester Relationship Specialty Start Date End Date Freddy Salazar MD [address] [address] PCP - General 10/13/19
--- OUTSIDE RECORDS SUMMARY | 2025-02-09 16:24 | XMS_ITS | Clinical Summary ---
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
[2025-02-09 16:26] VITALS: BP 137/87; PULSE 72; RESP 20; TEMP 36.6; O2SAT 100
--- NOTE | 2025-02-09 16:36 | ED.SKABFB ---
HPI - Skin/Abscess/Foreign Bdy General Chief complaint: Skin/Abscess/Foreign Body Stated complaint: rash around stomach Time Seen by Provider: 02/09/25 16:36 Source: patient Mode of arrival: ambulatory Limitations: no limitations History of Present Illness HPI narrative: 34-year-old female presented for complaint of an itchy rash to the abdomen. Endorses round lesions spreading over the abdomen. States she started using bowu-txk-jyldlsz cream for ring warm. States she has continued to develop new lesions. Patient denies any other locations of the rash. Denies lip, tongue, or throat swelling, shortness of breath or wheezing. Denies changes to soap, detergent, lotion, or any other exposures. No one else in the house or any contacts with similar symptoms. Related Data Allergies Allergy/AdvReac Type Severity Reaction Status Date / Time No Known Drug Allergies Allergy Unknown Other Verified 02/09/25 16:29 Review of Systems Review of Systems: CONSTITUTIONAL: Denies body aches, fever, chills, or sweats. EYES: Denies visual changes, redness, or discharge. ENT: Denies rhinorrhea, congestion CARDIOVASCULAR: Denies chest pain, palpitations, or edema. RESPIRATORY: Denies cough or dyspnea. GASTROINTESTINAL: Denies abdominal pain, nausea, vomiting, or diarrhea. SKIN: reports rash MUSCULOSKELETAL: Denies back pain, joint pain, or myalgia. NEUROLOGIC: Denies headache, numbness, tingling, or weakness. [facility] Past Medical History Medical History Screen for STD (sexually transmitted disease) Asthma Elevated serum cholesterol Anxiety and depression Surgical History Surgical History Status post tendon repair right hand History of tubal ligation Hx of cholecystectomy Family History Family History Grandparent Cerebrovascular accident Cancer Mother Hypertension Father Asthma Sibling Asthma Other Heart disease Social History Social History Smoking status: Never smoker Alcohol intake: never Substance use: current Substance use type: marijuana Lack of Transportation: No Lack of Food: Never True Current Housing: I Have Housing Concerned About Future Housing: No Difficulty Paying Gas/Electric Bills: No Difficulty Paying for Meds: No Currently Unemployed: No Education: High School Diploma/GED Difficulty w/ Childcare or Family Care: No Living arrangements: with family Gender identity (if verbalized by the patient): Female Comments At time of signature, I have reviewed and agree with nursing past medical, surgical, social and family history unless otherwise noted. Please see nursing chart for further information. There is no relevant family history pertinent to the presenting complaint Exam Narrative: GENERAL: Well-appearing HEAD: Normocephalic, atraumatic. EYES: conjunctivae clear, and EOMI. ENT: Mucous membranes moist. Oropharynx without edema, erythema or lesions. NECK: Supple. No lymphadenopathy CHEST: Clear to auscultation. HEART: Regular rate and rhythm. SKIN: Warm, dry. Few scattered erythematous circular ring patches to abdomen consistent with tinea, nontender, no drainage NEURO: Alert and oriented x3. Course Course Emergency Course: Patient is aware of diagnosis, understands and agrees to treatment plan. Anticipatory guidance given. Patient agrees to follow-up as directed and is aware of reasons to seek care at the emergency department. Portions of this record may have been created with voice recognition software Level of Care: Express Care Visit Vital Signs Vital signs: Vital Signs Temperature 97.8 F 02/09/25 16:26 Pulse Rate 72 02/09/25 16:26 Respiratory Rate 20 02/09/25 16:26 Blood Pressure 137/87 02/09/25 16:26 Pulse Oximetry 100 02/09/25 16:26 Oxygen Delivery Room Air 02/09/25 16:26 Temperature 97.8 F 02/09/25 16:26 Pulse Rate 72 02/09/25 16:26 Respiratory Rate 20 02/09/25 16:26 Blood Pressure 137/87 02/09/25 16:26 Pulse Oximetry 100 02/09/25 16:26 Oxygen Delivery Room Air 02/09/25 16:26 Reviewed MDM - Skin/Abscess/Foreign Bdy MDM Narrative Medical decision making narrative: Discussed physical exam findings c/w ringworm. Reviewed RX, Advised supportive measures and signs/symptoms to go to the ER. Pt is appropriate for outpt treatment and f/u. Differential Diagnosis Differential diagnosis: Likely abscess of skin or subcutaneous tissue, viral exanthem, dermatophytosis, urticaria, herpes zoster, cellulitis, eczema, insect bites, impetigo and contact dermatitis Discharge Plan Discharge Clinical Impression: Tinea corporis Patient Disposition: Home Condition: Stable Instructions: Antibiotic Form, Tinea Corporis (ED) Additional Instructions: Ringworm is a contagious fungal infection caused by common mold-like parasites that live on the cells in the outer layer of your skin. It can be spread by Human to human by direct, sebv-ai-vrdw contact with an infected person. You are considered contagious as long as the skin fungus appears on your skin Use cream as directed Follow up with your primary care provider as needed in 1 week Go to the ER for worsening symptoms or concerns Patient Language: South African Prescriptions: New ketoconazole 2 % cream 1 applic topical DAILY 14 Days Qty: 30 0RF Follow-up/Referrals: PHYSICIAN,LEGAL SUPPORT ANALYST [Primary Care Provider] - Time of Disposition: 16:45
== END 2025-02-09 16:50 | disposition home or self-care (01) ==
PROVIDERS: Emergency Provider Nurse Practitioner Family
DX: B35.4 Tinea corporis (principal); J45.909 Unspecified asthma, uncomplicated; F12.90 Cannabis use, unspecified, uncomplicated
CPT/HCPCS: 99213; G0463

== ENCOUNTER 2025-05-15 16:24 | Emergency (ER) | payer SELFPAY ==
--- OUTSIDE RECORDS SUMMARY | 2025-05-15 16:26 | XMS_ITS | Data Portability ---
Author Organization [place] [facility], Main Office Address [address] [place] [address] Assessment Encounter Date Assessment Date Assessment LastModified [...] 024 [email or web address] Bradly Umana MD, [address] [facility], [address], [place], [address], 4 08:22:12 obstetricia n and gynecologis t referral 2022 023 James Hodgson MD, [address] [facility] [address], [place], [address], 3 15:01:33 Procedures None recorded. Surgeries None recorded. Imaging None recorded. Medication Orders cephalexin 250 mg capsule 2023 024 [id number], [address], [place], [place], [id number], 4 15:07:06 tramadol 50 mg tablet 2023 024 [facility] #[id number], [address], [place], [place], [id number], 4 14:53:50 escitalopra m 20 mg tablet 2022 023 eva vallejo [facility] #[id number], [address], [place], [place], [id number], 4 14:51:24 fluticasone propionate 50 mcg/actuati on nasal spray,suspe nsion 2022 023 [facility] #[id number], [address], [place], [place], [id number], 3 14:50:30 cetirizine 10 mg tablet 2022 023 [facility] #71375, [address], [place], [place], [id number], 3 14:50:41 Patient TargetsNo targets recorded. Patient InstructionsNo instructions recorded. 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 Not Available [facility] (Lab) [address] [place], [address], 07/16/2023 20:05:21 07/16/20 23 07/16/2023 HEPAT ITIS ACUTE PANEL hepatitis A virus signal/cutof 0.01 0.00-0 .79 Not Available [facility] (Lab) [address] [place], [address], 07/16/2023 20:05:21 07/16/20 23 07/16/2023 HEPAT ITIS ACUTE PANEL hepatitis B core IgM antibody NON-RE ACTIVE non-re active Not Available [facility] (Lab) [address] [place], [address], 07/16/2023 20:05:21 07/16/20 23 07/16/2023 HEPAT ITIS ACUTE PANEL HBV core IgM signal/cutof f 0.03 0.00-1 .10 Not Available [facility] (Lab) [address] [place] [address], [address], 07/16/2023 20:05:21 07/16/20 23 07/16/2023 HEPAT ITIS ACUTE PANEL hepatitis B surface antigen NON-RE ACTIVE non-re active All speci mens react tarah for Hepat itis B Surfa ce Antig en will refle x to refer ral lab confi rmato ry testi ng. Not Available [facility] (Lab) [address] [place] [address], [address], 07/16/2023 20:05:21 07/16/20 23 07/16/2023 HEPAT ITIS ACUTE PANEL HBV surf.antigen signal/cutof f 0.07 0.00-0 .99 Not Available [facility] (Lab) [address] [place] [address], [address], 07/16/2023 20:05:21 07/16/20 23 07/16/2023 HEPAT ITIS ACUTE PANEL hepatitis C antibody NON-RE ACTIVE non-re active All speci mens react tarah for Hepat itis C Virus antib dionisio will refle x to PCR confi rmato ry testi ng. Pleas e allow 48-72 hours for resul ts. Not Available [facility] (Lab) [address] [place] [address], [address], 07/16/2023 20:05:21 07/16/20 23 07/16/2023 HEPAT ITIS ACUTE PANEL hepatitis C virus signal/cutof 0.01 0.00-0 .99 Not Available [facility] (Lab) [address] [place], [address], 07/16/2023 20:05:21 07/16/20 23 07/16/2023 HIV COMBO : HIV 1/2 AB,P2 4 AG HIV combo assay NON-RE ACTIVE nonrea ctive The HIV combo test scree ns for HIV-1 , HIV-2 , HIV p24 Ag, and HIV group O. Any react tarah scree n resul t will be sent for PCR confi rmato ry testi ng. Not Available [facility] (Lab) [address] [place], [address], 07/16/2023 20:05:05 07/16/20 23 07/16/2023 HIV COMBO : HIV 1/2 AB,P2 4 AG signal/cutof f 0.17 0.00-0 .99 Not Available [facility] (Lab) [address] [place], [address], 07/16/2023 20:05:05 07/16/20 23 07/16/2023 CT/NG (CHLA MYDIA /NEIS SERIA ) DNA chlamydia trachomatis DNA NOT DETECT ED Not Available [facility] (Lab) [address] [place], [address], 07/16/2023 20:23:46 07/16/20 23 07/16/2023 CT/NG (CHLA MYDIA /NEIS SERIA ) DNA neisseria gonorrhea DNA NOT DETECT ED Not Available [facility] (Lab) [address] [place], [address], 07/16/2023 20:23:46 07/16/20 23 07/17/2023 HERPE S/HSV [...] detec chapin to HSV-1 . Not Available [facility] (Lab) [address] [place], [address], 07/17/2023 07:12:16 07/16/20 23 07/17/2023 HERPE S/HSV [...] . Perfo rmed at: [facility] [address] [facility], [facility] [address] Lab Direc tor: Cuco mathews PhD, Phone : [phone] Not Available [facility] (Lab) [address] [place], [address], 07/17/2023 07:12:16 07/16/20 23 07/21/2023 RPR SCREE N RPR NON-RE ACTIVE nonrea ctive Not Available [facility] (Lab) [address] [place], [address], 07/21/2023 09:44:40 Result Notes None recorded. Problems Name Problem SNOMED Code Status Onset Date Resolution Date Notes Provider Name and Address Organization Details Recorded Time Pleuritic pain 9238892 Active Not Available [facility] 3 01:07:49 Vitamin D deficiency 47995551 Active 2021 Not Available [facility] 3 01:07:49 Hyperlipidemi a 86271200 Active 2021 Not Available [facility] 3 01:07:50 Tooth disorder 852069599 Active 2021 Not Available [facility] 3 01:07:49 Toothache 30781928 Active 2021 Not Available [facility] 3 01:07:49 Upper respiratory infection 64828212 Active 2022 Not Available [facility] 3 01:07:50 Moderate recurrent major depression 30065591 Active 2022 Letitia mcintosh MD [address], [address], [place], [address] , [employer] [facility] 3 14:41:48 Allergic rhinitis 04098609 Active 2022 Letitia mcintosh MD [address], [place], [address] , [employer] [facility] 3 14:42:30 Serum vitamin B12 below reference range 439926578 Active 2022 Letitia mcintosh MD [address], [place], [address] , [facility] 3 14:51:41 Multiple skin tags 790678665 Active 2022 Maryellen Arzola null, [facility] 3 09:34:02 Vaginitis 08345758 Active 2022 Maryellen Arzola null, [facility] 3 11:15:32 Abscess 243583800 Active 2023 Ann Marie Bangura RN null, [facility] 4 13:59:42 Folliculitis 97238048 Active 2023 Letitia mcintosh MD [address], [address], [place], [address] , [facility] 4 14:34:04 Hyperglycemia 12851970 Active 2023 Letitia mcintosh MD [address], [address], [place], [address] , [facility] 4 14:45:27 Abscess of skin and/or subcutaneous tissue 09579537 Active 2023 Bradly hoffman MD [address], [address], [place], [address] , [facility] 4 14:55:21 Infection of skin and/or subcutaneous tissue 86587516 Active 2023 Clara Rivas MA null, [facility] 4 11:45:53 Pain of ear 460848402 Active 2023 Clara Rivas MA null, [facility] 4 10:55:07 Problem Notes None recorded. Procedures Surgical History Date Name Laterality Status Provider Name and Address Organization Details Recorded Time 11/12/19 24 Blank Procedure completed Bradly aponte MD [address], [address], [place], [address], [facility] 11/12/2023 13:35:43 12/15/20 20 irrigation of root canal completed Not Available [facility] 10/08/2022 00:54:26 08/25/19 18 Cholecystectomy completed Not Available [facility] 10/08/2022 00:54:26 repair of ligament completed Not Available [facility] 10/08/2022 00:54:26 excision of lymph node completed Not Available [facility] 10/08/2022 00:54:26 Tubal Ligation completed Not Available [facility] 10/08/2022 00:54:26 Imaging Results None recorded. [...] Address Organization Details Last Updated DateTime 3 29636.9 9 g 32.1 kg/m2 172.72 cm 82 /min 98 % 98 % 130/80 mm[Hg] Katy Norton MA [facility] 3 14:21:43 Date Recorded Body weight Body mass index (BMI) Body height Body temperature Systolic And Diastolic Provider Name and Address Organization Details Last Updated DateTime 11/10/2023 61068.22 g 27.5 kg/m2 172.72 cm 97.6 [degF] 128/66 mm[Hg] GIANNA Drummond [facility] [employer] [facility] 4 14:14:26 Date Recorded Body height Body mass index (BMI) Body weight Body temperature Heart rate Respiratory rate Oxygen saturation Oxygen saturation in Arterial blood by Pulse oximetry Systolic And Diastolic Provider Name and Address Organization Details Last Updated DateTime 4 172.72 cm 27.5 kg/m2 42695.2 2 g 97.6 [degF] 100 /min 14 /min 97 % 97 % 120/80 mm[Hg] Pilar Coley [facility] 4 12:48:17 Social History Question Answer Notes LastModified by Organizat ion Details LastModified Time Tobacco Smoking Status Never Smoker Not Available [facility] 10/08/2022 00:48:36 Do You Have An Advance Directive? No [id number] Information not available 10/08/2022 What Is Your Level Of Caffeine Consumption? Moderate [id number] Information not available 10/08/2022 How Much Tobacco Do You Chew? None [id number] Information not available 10/08/2022 In The 14 Days Before Symptom Onset, Have You Had Close Contact With A Laboratory-confir med COVID-19 While That Case Was Ill? No [id number] Information not available 10/08/2022 In The 14 Days Before Symptom Onset, Have You Had Close Contact With A Person Who Is Under Investigation For COVID-19 While That Person Was Ill? No [id number] Information not available 10/08/2022 What Type Of Diet Are You Following? REGULAR [id number] Information not available 10/08/2022 Which Illicit Or Recreational Drugs Have You Used? Cannabis Daily Smoker [id number].[id number] Information not available 10/08/2022 Are There Any Guns Present In Your Home? Yes [id number] Information not available 10/08/2022 What Was The Date Of Your Most Recent Tobacco Screening? 11/10/2023 Information not available 11/10/2023 Do You Use Sunscreen Routinely? Yes [id number] Information not available 10/08/2022 How Many Years Have You Smoked Tobacco? 0 [id number].[id number] Information not available 10/08/2022 Sex: Unknown Functional Status Question Answer Note LastModified by Organizat ion Details LastModified Time Do you or have you ever used any other forms of tobacco or nicotine? No Information not available 11/10/2023 What is your level of alcohol consumption? None [id number] Information not available 10/08/2022 Do you or have you ever used smokeless tobacco? 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 Never used electronic cigarettes [id number].[id number] 026 Information not available 10/08/2022 What is your exercise level? Occasional [id number].[id number] 026 Information not available 10/08/2022 Mental Status None recorded. Family History Relationship Description Onset Age of this Age Resolved Age Notes LastModified by Organization Details LastModified Time Mother Hypertensive disorder [id number] Not available 10/08/2022 00:54:28 Mother Syncope [id number].900 [id number] Not available 10/08/2022 00:54:28 Mother Depressive disorder [id number] Not available 10/08/2022 00:54:28 Father Depressive disorder MIGRATION.133 [id number] Not available 10/08/2022 00:54:28 Father Hyperlipidem ia MIGRATION.[id number] Not available 10/08/2022 00:54:28 Medical History Condition [...] formulation 7 completed Not Available [facility] 10/08/2022 01:26:24 Influenza, split virus, quadrivalent, PF 0 completed Not Available [facility] 10/08/2022 01:26:25 Influenza, split virus, quadrivalent, PF 8 completed Not Available [facility] 10/08/2022 01:26:25 Past Encounters Encounter ID Performer Location Encounter Start Date Encounter Closed Date Diagnosis/Indication Diagnosis SNOMED-CT Code Diagnosis ICD10 Code Diagnosis IMO Codes Diagnosis Note [id number] Letitia mcintosh MD [facility] Internal Med [facility] [address] [place] [address] [place] [address] 10/22/2022 14:04:12 10/22/2022 14:53:07 Screening - NAD 771434541 Z13.9 PAP: Get this Get flu shotDoes not want the COVID 19 vaccineGet tdap if not doneDeclin es all vaccines RTC in 6 months, do labs, ER if worse, she did verbalize her understand ing of the above Gynecologi c examination 53063488 Z01.419 Moderate r ecurrent major depression 95025071 F33.1 On escitalopr am 20mg dailyNot suicidal or homicidal Vitamin D deficiency 347 18815 E55.9 Get vit d level Allergic rhinitis 868699 04 J30.9 On flonaseOn zyrtec Long-term drug therapy 296028460 Z79.899 Serum kassandra min B12 below reference range 173524377 R79.89 [id number] Letitia mcintosh MD [facility] Internal Med [facility] [address], [facility] [address] [place] [address] 11/10/2023 14:03:56 11/10/2023 15:08:50 Screening - NAD 001120265 Z13.9 PAP: Sees Dr Gokul PADILLA as per her today 11/10/2023 did see him in 07/2023 Get flu shotDoes not want the COVID 19 vaccineGet tdap if not doneDeclin es all vaccines again 11/10/2023 RTC in 3 months, do labs, ER if worse, she did verbalize her understand ing of the above Moderate r ecurrent major depression 44039274 F33.1 On escitalopr am 20mg daily, states that she is not taking this 11/10/2023 , does wellNot suicidal or homicidal Vitamin D deficiency 347 97624 E55.9 Get vit d level Allergic rhinitis 614921 04 J30.9 On flonaseOn zyrtec Serum kassandra min B12 below reference range 086253229 R79.89 Hyperlipidemia 03876871 E78.5 On rosuvastat in 20mg daily Folliculitis 00436579 L7 3.9 Likely has a cyst on the pubic areaGet on cephalexin 250mg po qid for 7 [address] Dozier 11/12/2023 at 11.30amGet on tramadol d/t pain Hyperglycemia 32964085 R 73.9 Get A1C level [id number] Bradly hoffman MD [facility] General Surgery [address] [facility] [place] [address] 11/12/2023 11:53:12 11/12/2023 13:37:31 Abscess of skin and/or subcutaneous tissue 51271391 L02.91 pubic Health Concerns Section Related Observation LastModified by Organization Detai ls LastModified Time None Recorded Concern Status LastModified by Organization Details LastModified Time None Recorded Advance Directives Directive N: Payers Insurance Date Sequence Insurance Name Policy Number Policy Leonard Covered Member ID Leonard Member ID Guarantor Name 01/02/2024 1 [facility] [id number] Steve Stevens [id number] Lukas Stevens Notes Date Note Type Note Provider Name and Address Organization Details Recorded Time 10/22/2022 text/html OV 10/22/2022:Here to restablish care Past Hx:DepressionAllerg y Reviewed social family and surgical history Here to get labs, feels well Letitia Salazar MD [address] [facility], [address], [place], [address], [place] [facility] 10/22/2022 14:52:04 11/10/2023 text/html OV 10/22/2022:Here to restablish care Past Hx:DepressionAllerg y Reviewed [...] Salazar MD [address], [address], [place], [address], [employer] 11/10/2023 14:52:01 11/12/2023 text/html patient complained of painful swelling and redness in her pubic area for the last 3 days. Denies fevers chills. Denies redness. Has had previous abscesses drained in her abdominal wall. Bradly Benavides MD [address], [address], [place], [address], [employer] 11/12/2023 14:55:34 OBGyn Episode No OBEpisode recorded.
--- OUTSIDE RECORDS SUMMARY | 2025-05-15 16:26 | XMS_ITS | Clinical Summary ---
Author Organization [facility] Address [address] [place] [address] Phone Care Team Providers Care Oil Well Fishing Tool Technician Name Role Phone Letitia Salazar MD Primary [...] Comments Blood Pressure 135/87 08/24/2023 2:48 PM [employer] Pulse 92 08/24/2023 2:48 PM [employer] Temperature 36.8 C (98.2 F) 08/24/2023 2:48 PM [employer] Respiratory Rate 16 08/24/2023 2:48 PM [employer] Oxygen Saturation 97% 08/24/2023 2:48 PM [employer] Inhaled Oxygen Concentration - - Weight 88 kg (194 lb) 08/24/2023 2:48 PM [employer] Height 170.2 cm (5' 7) 08/24/2023 2:48 PM [employer] Body Mass Index 30.38 08/24/2023 2:48 PM [employer] Plan of Treatment Not on file Insurance [facility] Care Teams Oil Well Fishing Tool Technician Relationship Specialty Start Date End Date Letitia Salazar MD [address] [place] [address] PCP - General Internal Medicine 05/05/20
--- OUTSIDE RECORDS SUMMARY | 2025-05-15 16:26 | XMS_ITS | Clinical Summary ---
Author Organization [facility] Address [address] [place] [address] Care Team Providers Care Electrical Technician Name Role Phone Freddy Salazar MD Primary [...] on file Legal Sex Female 1:00 AM SYNCHRONIZER Gender Identity Not on file Sexual Orientation [...] Plan of Treatment Not on file Insurance Member Subscriber Plan / Payer (Ef fective 2019-Present) Name:Lukas Stevens Relation to Subscriber:Self Name:Lukas Stevens Payer ID:[id number] (NAIC) Type:[facility] Address: [address] [employer] [facility] [employer] Care Teams Electrical Technician Relationship Specialty Start Date End Date Freddy Salazar MD [address] [address] PCP - General 10/13/19
--- OUTSIDE RECORDS SUMMARY | 2025-05-15 16:29 | XMS_ITS | Patient Health Record ---
Author Organization [facility] [employer] Address [address] [place] [address] Care Team Providers Care Motor Assembler Name Role Phone Paloma Cardona Unavailable [phone] Reason For Referral No Information Medications Medication SIG (Take, Route, Frequency, Duration) Notes Start Date End Date Status Vienva 0.1-20 MG-MCG Tablet Oral 06/18/2020 Active Rosuvastatin Calcium 20 MG Tablet Oral 06/18/2020 Active Loratadine 10 MG Tablet Oral 06/18/2020 Active Escitalopram Oxalate 20 MG Tablet Oral 06/18/2020 Active Immunizations Vaccine Route Administration Date Status Comme nts Influenza virus vaccine, quadrivalent (IIV4), split virus, 0.25 mL dosage Unknown 06/11/2020 Administered Influenza, unspecified formulation Unknown 07/10/2017 A dministered Novel [id number], preservative free Unknown 07/19/2018 Administered Social History Social History Additional Details Category Social Info Options Details Migrated Social History Migrated Social History Alcohol Intake: None 06/18/2020,Tobacco Years: Never smoker 06/04/2020 Plan Of Treatment No Information Insurance Providers Payer Name Payer Address Payer Phone Subscriber Number Group Number Insured Name Patient Relationship to Insured Coverage Start Date Coverage End Date [facility] [address] [place] [phone] [id number] PEPPER MATIAS Self - patient is the insured Medical (General) History Surgical History Surgery Date(Month/Year) Cholecystectomy ([id number])
[2025-05-15 16:42] VITALS: BP 128/78; PULSE 82; RESP 17; TEMP 36.8; O2SAT 100
--- NOTE | 2025-05-15 17:11 | ED_ITS ---
HPI - URI/Sore Throat General Chief Complaint: Upper Respiratory Infection Stated Complaint: throat/head sinus Time Seen by Provider: 05/15/25 17:04 Source: patient and RN notes reviewed Mode of arrival: ambulatory Limitations: no limitations History of Present Illness HPI Narrative: 34-year-old female patient presents today with approximately 10 day history of headache, sore throat, postnasal drip, fatigue. Denies shortness of breath or fever. She has tried numerous lxlb-abq-jyojlmq medications with short-term relief. Sons were recently diagnosed with strep throat. 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 Reports history of exertional asthma. Related Data Allergies Allergy/AdvReac Type Severity Reaction Status Date / Time No Known Drug Allergies Allergy Unknown Other Verified 02/09/25 16:29 [facility] Past Medical History Medical History Screen for STD (sexually transmitted disease) Asthma Elevated serum cholesterol Anxiety and depression Surgical History Surgical History Status post tendon repair right hand History of tubal ligation Hx of cholecystectomy Family History Family History Grandparent Cerebrovascular accident Cancer Mother Hypertension Father Asthma Sibling Asthma Other Heart disease Social History Social History Smoking status: Never smoker Alcohol intake: never Substance use: current Substance use type: marijuana Lack of Transportation: No Lack of Food: Never True Current Housing: I Have Housing Concerned About Future Housing: No Difficulty Paying Gas/Electric Bills: No Difficulty Paying for Meds: No Currently Unemployed: No Education: High School Diploma/GED Difficulty w/ Childcare or Family Care: No Living arrangements: with family Gender identity (if verbalized by the patient): Female Comments At time of signature, I have reviewed and agree with nursing past medical, surgical, social and family history unless otherwise noted. Please see nursing chart for further information. There is no relevant family history pertinent to the presenting complaint Exam Narrative: GENERAL: Mildly ill-appearing, well-nourished, and in no acute distress. HEAD: Normocephalic, atraumatic. EYES: EOMI. No redness or drainage. Conjunctivae normal. ENT: Mucous membranes pink and moist. Nares congested with rhinorrhea. Bilateral frontal and maxillary sinus tenderness. TMs normal bilaterally. Throat normal. Uvula midline. NECK: Normal AROM. Supple. No lymphadenopathy. CHEST: No respiratory distress. Clear to auscultation. HEART: Regular rate and rhythm. No murmur appreciated. EXTREMITIES: Normal range of motion. No edema. SKIN: Warm, dry, no rash. Capillary refill normal. Normal skin turgor. NEURO: No focal deficits. Alert and oriented x3. Gait steady. PSYCH: Normal affect. No signs of depression or anxiety. Course Course Level of Care: Express Care Visit Vital Signs Vital signs: Vital Signs Temperature 98.3 F 05/15/25 16:42 Pulse Rate 82 05/15/25 16:42 Respiratory Rate 17 05/15/25 16:42 Blood Pressure 128/78 05/15/25 16:42 Pulse Oximetry 100 05/15/25 16:42 Oxygen Delivery Room Air 05/15/25 16:42 Temperature 98.3 F 05/15/25 16:42 Pulse Rate 82 05/15/25 16:42 Respiratory Rate 17 05/15/25 16:42 Blood Pressure 128/78 05/15/25 16:42 Pulse Oximetry 100 05/15/25 16:42 Oxygen Delivery Room Air 05/15/25 16:42 Reviewed MDM - URI/Sore Throat MDM Narrative Medical decision making narrative: 34-year-old female patient presents today with approximately 10 day history of headache, sore throat, postnasal drip, fatigue. Denies shortness of breath or fever. She has tried numerous befg-zoj-akiwluc medications with short-term relief. Sons were recently diagnosed with strep throat. 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 Upon exam, patient has some nasal congestion with bilateral frontal and maxillary sinus tenderness. Due to length of illness and exam findings, patient will be started on some Augmentin for presumed bacterial sinusitis. Negative rapid strep. Strep culture pending. Recommend continuing OTC medication if she wishes, and considering an intranasal steroid to help with congestion and sinus inflammation. Patient agrees with plan. Vital signs stable. Anticipatory guidance given. Differential Diagnosis Differential diagnosis: Likely upper respiratory infection, sinusitis, viral infection, pharyngitis and other (Strep throat) Critical Care Time Critical Care Time Critical Care Time: No Discharge Plan Discharge Clinical Impression: Sinusitis Qualifiers: Sinusitis location: unspecified location Chronicity: acute Recurrence: non- recurrent Qualified Code(s): J01.90 - Acute sinusitis, unspecified Patient Disposition: Home Condition: Stable Instructions: Antibiotic Form, Sinusitis (ED) Additional Instructions: Please take the Augmentin as prescribed until gone. Consider an intranasal steroid such as Flonase to help with your nasal congestion and sinus pressure. Your rapid strep test is negative. You will be notified by telephone if the strep culture comes back positive. Continue OTC medication if you wish. Follow-up with your PCP in 3 days if symptoms are not improving. Patient Language: Brazilian Prescriptions: New amoxicillin-pot clavulanate 875-125 mg tablet 1 tablet PO Q12H 7 Days Qty: 14 0RF No Action ketoconazole 2 % cream 1 applic topical DAILY 14 Days Qty: 30 0RF Follow-up/Referrals: PHYSICIAN,CREDIT CARD CLERK [Primary Care Provider, Internal Medicine] Time of Disposition: 17:15
[2025-05-15 17:14] LABS: EDSTREPNEGPOS1 Negative (Negative)
== END 2025-05-15 17:18 | disposition home or self-care (01) ==
PROVIDERS: Emergency Provider Nurse Practitioner
DX: J01.90 Acute sinusitis, unspecified (principal); F12.90 Cannabis use, unspecified, uncomplicated; J45.909 Unspecified asthma, uncomplicated; E78.00 Pure hypercholesterolemia, unspecified
CPT/HCPCS: 87081; 87880; 99213; G0463